=== PATIENT | female | born 1960 | race Caucasian/White ===

== ENCOUNTER 2017-10-19 01:39 | Outpatient (RCR) | payer MEDICARE, MEDICAID, SELFPAY ==
[2017-10-19] MEDS: Normal Saline Flush 10 ML SYR IVP (14:05)
[2017-10-19] MEDS: Heparin 500 UNITS/5 ML SYRINGE IV (14:05)
== END 2017-10-28 ==
LOC: INF 01:39
PROVIDERS: PCP Nurse Practitioner; Visit Provider Internal Medicine Medical Oncology
DX: Z45.2 Encounter for adjustment and management of vascular access device (principal); C34.92 Malignant neoplasm of unspecified part of left bronchus or lung
CPT/HCPCS: 96523

== ENCOUNTER 2017-11-18 00:12 | Outpatient (CLI) | payer MEDICARE, MEDICAID, SELFPAY ==
--- NOTE | 2017-11-18 09:41 | DI.RAD_ITS ---
SYMPTOM/DIAGNOSIS: CHEST PAIN, SOB, J18.9, PNEUMONIA, RESP FAILURE, J96.20 FRONTAL AND LATERAL CHEST: Comparison is made with 06/02/17. Heart size is within normal limits. There is opacity seen in the left hilum with peripheral scarring, atelectasis or pneumonia. There does appear to be volume loss of the left hemithorax. The right lung appears clear. No gross effusions are seen. There is underlying COPD. Degenerative changes are seen in the spine. There is again seen an indwelling central venous catheter, the tip is seen in good position in the superior vena cava. IMPRESSION: Opacity in the left hilum. The findings raise the question of neoplasm. CT scan of the chest is recommended for further evaluation. Pneumonia cannot be entirely excluded. Peripheral opacities in the left upper lobe which may represent atelectasis, scarring or pneumonia.
== END 2017-11-18 00:32 ==
PROVIDERS: PCP Nurse Practitioner; Visit Provider Nurse Practitioner
DX: R07.9 Chest pain, unspecified (principal); R06.02 Shortness of breath; J18.9 Pneumonia, unspecified organism; R91.1 Solitary pulmonary nodule
CPT/HCPCS: 71046

== ENCOUNTER 2017-11-22 00:52 | Outpatient (CLI) | payer MEDICARE, MEDICAID, SELFPAY ==
--- NOTE | 2017-11-22 10:40 | DI.CT_ITS ---
SYMPTOMS/DIAGNOSIS: ABNORMAL CXR, H/O LUNG CA, R93.8 CT SCAN OF THE CHEST: CT scan of the chest was performed following the uneventful administration of intravenous contrast material. Comparison CT is 05/03/17. Comparison chest x- ray is 11/18/17. There is atherosclerosis of the thoracic aorta but no aneurysmal dilatation. The heart size is at the upper limits of normal. No significant pericardial effusion is seen. Coronary artery calcifications are present. There is a moderate-sized hiatal hernia. No pleural effusion or pneumothorax is identified. There are again seen enlarged lymph nodes in the mediastinum. The largest is in the AP window and measures 1.8 cm in length. This is unchanged compared with the prior examination. Severe central lobular emphysematous changes are present in the lungs. Mild dependent atelectatic changes or scarring is seen in the right lung base. No pulmonary nodules are infiltrates are seen on the right. There is a partial left pneumonectomy again noted. There is a shift of the mediastinum to the left , which is stable. There is a new infiltrate seen in the periphery of the left mid lung field anteriorly. There also appears to be increased soft tissue density in the inferior aspect of the hilum medially compared to the prior examination. There does appear to be some narrowing of the airway in this region. This area measures 2.4 x 3 cm. Recurrent mass cannot be excluded. There is a central venous catheter seen. The tip of the catheter is present at the junction of the superior vena cava and right atrium. Upper abdominal images show the patient is status post cholecystectomy. There is a left renal cyst present. Degenerative changes are seen in the spine. IMPRESSION: 1. Postsurgical changes of a partial left pneumonectomy, which appear stable. 2. Question of increased soft tissue in the infrahilar region of the left lung. Recurrent mass should be considered. Further evaluation with a PET/ CT scan should be considered. 3. New infiltrate seen in the periphery of the left lung anteriorly. This may represent pneumonia or atelectasis. Neoplasm cannot be excluded. 4. Moderately severe emphysematous changes in the lungs. 5. Stable lymph nodes in the mediastinum.
[2017-11-22] MEDS: Omnipaque 350 MG/ML 100 ML BTL IJ (10:42)
== END 2017-11-22 01:12 ==
PROVIDERS: PCP Nurse Practitioner; Visit Provider Nurse Practitioner
DX: R91.8 Other nonspecific abnormal finding of lung field (principal); R59.0 Localized enlarged lymph nodes; J43.9 Emphysema, unspecified; Z85.118 Personal history of other malignant neoplasm of bronchus and lung; Z90.2 Acquired absence of lung [part of]
CPT/HCPCS: 71260; J3490

== ENCOUNTER 2017-11-22 09:30 | Outpatient (RCR) | payer MEDICARE, MEDICAID, SELFPAY ==
[2017-11-18] MEDS: Normal Saline Flush 10 ML SYR IVP (08:15)
[2017-11-18] MEDS: Heparin 500 UNITS/5 ML SYRINGE IV (08:15)
[2017-11-18 08:34] LABS: Abs Immature Grans 0.01 k/cumm (0.0-0.09); Absolute Basophil Count 0.02 k/cumm (0.0-0.2); Absolute Eosinophil Count 0.27 k/cumm (0.0-0.7); Absolute Lymphocyte Count 1.25 k/cumm (1.2-3.4); Absolute Monocyte Count 0.73 k/cumm (0.11-0.7); Basophils % 0.2; Eosinophils % 3.2; HGB 11.9 g/dL (12.0-15.5); Immature Grans % 0.1; Lymphocytes % 14.7; Mean Corpuscular Hemoglobin 29.8 pg (27.0-33.0); Mean Corpuscular Volume 87.5 fL (80-95); Mean Platelet Volume 9.4 fL (8.0-11.0); Monocytes % 8.6; Neutrophils % 73.2; Platelet Count 306 x1000/uL (130-400); RBC Distribution Width 12.3 % (11.7-14.6); White Blood Cell Count 8.48 k/cumm (4.4-10.8)
[2017-11-18 08:55] LABS: ALT 37 U/L (12-78); AST 26 U/L (15-37); Albumin 3.6 g/dL (3.4-5.0); Alkaline Phosphatase 124 U/L (46-116); Anion Gap 12.1 mmol/L (3-11); BUN 11 mg/dL (7-18); Bilirubin, Total 0.2 mg/dL (0.2-1.0); CO2 28.9 mmol/L (21.0-32.0); Calcium 8.5 mg/dL (8.5-10.1); Chloride 100 mmol/L (98-107); Cholesterol 181 mg/dL (50-200); Glucose 99 mg/dL (70-100); HDL Cholesterol 48 mg/dL (40-60); LDL CHOLESTEROL 93 mg/dL (<100); Potassium 3.3 mmol/L (3.5-5.1); Sodium 141 mmol/L (136-145); Total Protein 7.8 g/dL (6.4-8.2); Triglyceride 359 mg/dL (30-150)
[2017-11-18 09:20] LABS: Uric Acid 4.4 mg/dL (2.6-6.0)
[2017-11-22] MEDS: Normal Saline Flush 10 ML SYR IVP (09:30)
[2017-11-22] MEDS: Heparin 500 UNITS/5 ML SYRINGE IV (09:35)
== END 2017-11-27 23:59 | disposition home or self-care (01) ==
LOC: INF 09:30
PROVIDERS: PCP Nurse Practitioner; Visit Provider Internal Medicine Medical Oncology
DX: C34.32 Malignant neoplasm of lower lobe, left bronchus or lung (principal); M25.472 Effusion, left ankle; E78.5 Hyperlipidemia, unspecified
CPT/HCPCS: 36591; 80053; 80061; 83721; 85027; 96523; 71046; 71260; 84550; 85025; J3490

== ENCOUNTER 2017-11-24 15:26 | Outpatient (REF) | payer MEDICARE, MEDICAID, SELFPAY | END 2017-11-24 15:46 | LOC: LBN 15:26 | PROVIDERS: PCP Nurse Practitioner; Visit Provider Nurse Practitioner | DX: J18.9 Pneumonia, unspecified organism (principal) | CPT/HCPCS: 87077; 87070; 87186; 87205 ==

== ENCOUNTER 2018-02-07 11:32 | Outpatient (REF) | payer MEDICARE, MEDICAID, SELFPAY | END 2018-02-07 11:52 | LOC: LBN 11:32 | PROVIDERS: PCP Nurse Practitioner; Visit Provider Nurse Practitioner | DX: R06.02 Shortness of breath (principal) | CPT/HCPCS: 87070; 87205 ==

== ENCOUNTER 2018-02-17 01:38 | Outpatient (RCR) | payer MEDICARE, MEDICAID, SELFPAY | END 2018-02-27 23:59 | disposition home or self-care (01) | LOC: INF 01:38 | PROVIDERS: PCP Nurse Practitioner; Visit Provider Internal Medicine | DX: R69 Illness, unspecified (principal) ==

== ENCOUNTER 2018-03-08 10:05 | Outpatient (CLI) | payer MEDICARE, MEDICAID, SELFPAY ==
--- NOTE | 2018-03-08 10:05 | DI.RAD_ITS ---
SYMPTOM/DIAGNOSIS: SOB FRONTAL AND LATERAL CHEST: Comparison is made with 11/18/17. Cardiac silhouette and pulmonary vasculature is within normal limits. There is unchanged scarring in the left hilum. There is unchanged elevation of the left hemidiaphragm. The infiltrate in the mid lung has resolved. No new infiltrates, effusions or pneumothoraces are identified. The right lung is clear. The tip of the indwelling central venous catheter is in good position in the superior vena cava. Degenerative changes are seen in the spine. The lungs are hyperinflated suggesting underlying COPD. IMPRESSION: No acute pulmonary process.
== END 2018-03-08 10:25 ==
PROVIDERS: PCP Nurse Practitioner; Visit Provider Family Medicine
DX: R06.02 Shortness of breath (principal); J44.9 Chronic obstructive pulmonary disease, unspecified
CPT/HCPCS: 71046

== ENCOUNTER 2018-03-28 01:33 | Outpatient (RCR) | payer MEDICARE, MEDICAID, SELFPAY ==
[2018-03-28] MEDS: Heparin 500 UNITS/5 ML SYRINGE IV (11:05)
[2018-03-28] MEDS: Normal Saline Flush 10 ML SYR IVP (11:05)
== END 2018-03-30 23:59 | disposition home or self-care (01) ==
LOC: INF 01:33
PROVIDERS: PCP Nurse Practitioner; Visit Provider Internal Medicine
DX: C21.0 Malignant neoplasm of anus, unspecified (principal); Z45.2 Encounter for adjustment and management of vascular access device
CPT/HCPCS: 36591

== ENCOUNTER 2018-03-28 12:42 | Outpatient (REF) | payer MEDICARE, MEDICAID, SELFPAY ==
[2018-03-28 14:04] LABS: ALT 37 U/L (12-78); AST 38 U/L (15-37); Albumin 3.7 g/dL (3.4-5.0); Alkaline Phosphatase 130 U/L (46-116); BUN 8 mg/dL (7-18); Bilirubin, Total 0.2 mg/dL (0.2-1.0); CREATININE 0.74 mg/dL (0.55-1.02); Calcium 9.8 mg/dL (8.5-10.1); Chloride 100 mmol/L (98-107); Glucose 124 mg/dL (70-100); Potassium 3.4 mmol/L (3.5-5.1); Sodium 141 mmol/L (136-145); Total Protein 7.8 g/dL (6.4-8.2)
[2018-03-28 14:17] LABS: HCT 38.5 % (36.0-46.0); HGB 12.9 g/dL (12.0-15.5); Mean Corp. HGB Concentration 33.5 g/dL (32.0-36.0); Mean Corpuscular Hemoglobin 29.1 pg (27.0-33.0); Mean Corpuscular Volume 86.9 fL (80-95); Mean Platelet Volume 10.7 fL (8.0-11.0); Platelet Count 279 x1000/uL (130-400); RBC 4.43 m/cumm (4.00-5.20); RBC Distribution Width 12.4 % (11.7-14.6); White Blood Cell Count 6.48 k/cumm (4.4-10.8)
== END 2018-03-28 13:02 ==
LOC: LBN 12:42
PROVIDERS: PCP Nurse Practitioner; Visit Provider Nurse Practitioner
DX: R06.02 Shortness of breath (principal); J43.9 Emphysema, unspecified; C34.92 Malignant neoplasm of unspecified part of left bronchus or lung; F33.9 Major depressive disorder, recurrent, unspecified
CPT/HCPCS: 80053; 85027

== ENCOUNTER 2018-05-22 01:23 | Outpatient (RCR) | payer MEDICARE, MEDICAID, SELFPAY | END 2018-05-28 23:59 | disposition home or self-care (01) | LOC: INF 01:23 | PROVIDERS: PCP Nurse Practitioner; Visit Provider Nurse Practitioner | DX: R69 Illness, unspecified (principal) ==

== ENCOUNTER 2018-07-10 21:10 | Emergency (ER) | payer MEDICARE, MEDICAID, SELFPAY ==
[2018-07-10 21:15] VITALS: BP 122/85; PULSE 136; RESP 18; TEMP 36.3; O2SAT 97
[2018-07-10 21:43] LABS: Lactate-non-spesis 2.4 mmol/l (0.6-1.4)
[2018-07-10 21:47] LABS: Abs Immature Grans 0.06 k/cumm (0.0-0.09); Absolute Basophil Count 0.01 k/cumm (0.0-0.2); Absolute Eosinophil Count 0.45 k/cumm (0.0-0.7); Absolute Lymphocyte Count 1.06 k/cumm (1.2-3.4); Basophils % 0.1; Eosinophils % 4.1; HCT 40.8 % (36.0-46.0); Immature Grans % 0.5; Lymphocytes % 9.6; Mean Corp. HGB Concentration 31.9 g/dL (32.0-36.0); Mean Corpuscular Hemoglobin 28.1 pg (27.0-33.0); Mean Corpuscular Volume 88.1 fL (80-95); Mean Platelet Volume 9.8 fL (8.0-11.0); Monocytes % 7.8; Neutrophils % 77.9; Platelet Count 250 x1000/uL (130-400); RBC 4.63 m/cumm (4.00-5.20); RBC Distribution Width 13.1 % (11.7-14.6); White Blood Cell Count 11.09 k/cumm (4.4-10.8)
[2018-07-10 21:48] LABS: Absolute Monocyte Count 0.87 k/cumm (0.11-0.7); Absolute Neutrophil Count 8.64 k/cumm (1.2-6.7)
[2018-07-10 22:01] LABS: ALT 41 U/L (12-78); AST 24 U/L (15-37); Albumin 3.3 g/dL (3.4-5.0); Alkaline Phosphatase 123 U/L (46-116); BUN 9 mg/dL (7-18); Bilirubin, Total 0.1 mg/dL (0.2-1.0); CREATININE 0.69 mg/dL (0.55-1.02); Calcium 9.4 mg/dL (8.5-10.1); Chloride 94 mmol/L (98-107); Glucose 168 mg/dL (70-100); Potassium 3.3 mmol/L (3.5-5.1); Sodium 137 mmol/L (136-145); Total Protein 7.5 g/dL (6.4-8.2)
[2018-07-10] MEDS: Potassium Chloride 20 MEQ TABCR 40 MEQ PO (22:43)
[2018-07-10] MEDS: Normal Saline 250 ML 500 ML IV (22:45)
[2018-07-10] MEDS: HYDROmorphone 2 MG/ML VIAL 1 MG IVP (22:52)
[2018-07-10] MEDS: Omnipaque 350 MG/ML 100 ML BTL IJ (22:59)
--- NOTE | 2018-07-10 23:10 | DI.CT_ITS ---
SYMPTOMS/DIAGNOSIS: ABD PAIN, COLITIS, ELEVATED LACTATE, ? MESENTERIC ISCHEMIA CT OF THE ABDOMEN AND PELVIS: Comparison is made with [id number]. Images were performed from the lung bases through the ischial tuberosities after IV and oral and without oral contrast. There is mild wall thickening of the mid transverse colon and more prominent wall thickening involving the descending and rectosigmoid colon. There is no evidence of obstruction. There is no small bowel dilatation. There is no free air or free fluid. A hiatal hernia is again noted. The lung bases show minimal dependent changes. There is fatty infiltration of the liver. The patient is status post cholecystectomy. There is no biliary dilatation. The spleen, adrenals and pancreas are unremarkable. Small left cysts are noted. There are no stones or hydronephrosis. There is calcification along the abdominal aorta but no evidence of an aneurysm. There is a mild amount of mural plaque. The celiac and superior mesenteric arteries are normally opacified. 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 The patient is status post hysterectomy. The bladder is unremarkable except for a question of a cystocele. IMPRESSION: Moderate wall thickening of the descending and rectosigmoid colon, consistent with colitis.
--- NOTE | 2018-07-10 23:19 | DI.VRAD_ITS ---
EXAM: CT Abdomen and Pelvis With Contrast EXAM DATE/TIME: 07/10/2018 10:45 PM CLINICAL HISTORY: 57 years old, female; Prior surgery; Surgery date: 6+ months; Surgery type: HX of rectal, anal, labia, and lung CA. Appendectomy, cholecystectomy, hysterectomy, and other surgeries related to CA. Last surgery 5 years ago for anal CA, ; patient HX: Abdominal pain, generalized TECHNIQUE: Imaging protocol: Axial computed tomography images of the abdomen and pelvis with intravenous contrast. Coronal and sagittal reformatted images were created and reviewed. Radiation optimization: All CT scans at this facility use at least one of these dose optimization techniques: automated exposure control; mA and/or kV adjustment per patient size (includes targeted exams where dose is matched to clinical indication); or iterative reconstruction. Contrast material: OMNIPAQUE 350; Contrast volume: 100 ml; Contrast route: IV; COMPARISON: CT CHEST ABD PELVIS WITH CONTRAST 05/03/2017 9:24 PM FINDINGS: Mediastinum: Small hiatal hernia. ABDOMEN: Liver: No suspicious lesions. Gallbladder and bile ducts: Cholecystectomy. Pancreas: Unremarkable. No ductal dilation. Spleen: No suspicious lesions. Adrenals: Unremarkalbe. No suspicious mass. Kidneys and ureters: Unremarkable. No hydro. No suspicious lesions. Stomach and bowel: Diffuse wall thickening of the left hemicolon which is [id number]. Appendix: Appendectomy. PELVIS: Bladder: Unremarkable as visualized. Reproductive: Hysterectomy. ABDOMEN and PELVIS: Intraperitoneal space: No free air. No significant fluid collection. Bones/joints: Grade 1-2 anterolisthesis of L5 on S1 secondary to bilateral L5 pars defects. Soft tissues: Unremarkable. Vasculature: Unremarkable. No acute findings Lymph nodes: Unremarkable. IMPRESSION: Left-sided colitis most likely infectious or inflammatory bowel disease. Small hiatal hernia. Dictated and Authenticated by: Ray Reagan MD. Ordering:LIZY Wasserman MD
[2018-07-10 23:54] VITALS: BP 98/71; PULSE 135; RESP 22; TEMP 37.2; O2SAT 90
[2018-07-11] MEDS: HYDROmorphone 2 MG/ML VIAL 1 MG IVP ×2 (00:32→02:20)
[2018-07-11 01:01] VITALS: O2SAT 93
--- NOTE | 2018-07-11 01:10 | DI.CT_ITS ---
SYMPTOMS/DIAGNOSIS: ABD PAIN, COLITIS, ELEVATED LACTATE CT ANGIOGRAPHY ABDOMEN AND PELVIS: CT angiography was performed with multi slice acquisition and multi planar and 3D reconstruction. Arterial and venous phase exams were performed following IV contrast. Comparison is made with the previous day's examination. The aorta shows mild calcification and mild mural thrombus. There is no evidence of aneurysm, dissection or significant stenosis. The celiac and superior mesenteric arteries appear patent. The renal and iliac arteries are also patent. Diffuse wall thickening is again noted of the left colon from the mid transverse through to the rectosigmoid. There is no evidence of obstruction. The small bowel is unremarkable. There is no free air or free fluid. No abscess is seen. The liver again shows fatty infiltration. The patient is status post hysterectomy. The urinary bladder is filled with contrast and there is a mild cystocele. The kidneys show normal excretion. IMPRESSION: Colitis of the left hemicolon. There is no evidence of vascular occlusion or significant stenosis.
[2018-07-11 01:26] LABS: HGB 11.9 g/dL (12.0-15.5)
--- NOTE | 2018-07-11 01:39 | ED.GENADUL_ITS ---
Discharge Plan Disposition Patient Disposition: AGAINST MEDICAL ADVICE Condition: Fair Discharge Details Chief Complaint: GenMedical Clinical Impression: Colitis, Coffee ground emesis, GI bleed, History of lung cancer, History of rectal cancer Primary Care Provider: Jacque Walsh ED Provider: Guera Keith Home Meds and New Rx's Prescriptions: New amoxicillin-pot clavulanate [Augmentin] 875-125 mg tablet 1 tab PO BID 10 Days Qty: 20 RF: 0 Continued prochlorperazine maleate 10 mg tablet 10 mg PO Q6H PRN PRN (Reason: nausea and vomiting) Qty: 60 RF: 3 levalbuterol tartrate [Xopenex HFA] 45 mcg/actuation HFA aerosol inhaler 2 puff Inhalation Q4H PRN PRN (Reason: shortness of breath or wheezing) Qty: 1 RF: 12 hydrocodone-homatropine [Hydrocodone Compound] 5-1.5 mg/5 mL syrup 5 ml PO BID MDD 10ml PRN (Reason: cough) Qty: 473 RF: 0 duloxetine [Cymbalta] 30 mg capsule,delayed release(DR/EC) 30 mg PO DAILY Qty: 90 RF: 4 nystatin 100,000 unit/gram powder 1 applic TP TID Qty: 60 RF: 3 levofloxacin [Levaquin] 500 mg tablet 500 mg PO DAILY RF: 0 tizanidine 2 mg tablet See Rx Instructions PO Q8H PRN (Reason: muscle spasticity) Qty: 120 RF: 3 morphine concentrate 100 mg/5 mL (20 mg/mL) solution See Rx Instructions SL Q1H PRN MDD 3ml PRN (Reason: pain) Qty: 30 RF: 0 fentanyl 50 mcg/hr patch 72 hour 1 patch TD Q48H MDD 1 Qty: 15 RF: 0 fentanyl 100 mcg/hr patch 72 hour 1 patch TD Q48H MDD 1 Qty: 15 RF: 0 prednisone 20 mg tablet See Rx Instructions PO DAILY Qty: 11 RF: 2 PREMARIN 45 GM CREAM.APPL 1 g Topical DAILY Qty: 45 RF: 0 acetaminophen [Tylenol Extra Strength] 500 MG tablet 1,000 mg PO TID PRNRF: 0 Narcan 4 MG spray,non-aerosol 1 spray NS PRN Qty: 1 RF: 1 Spiriva with HandiHaler 18 MCG capsule, w/inhalation device 18 mcg Inhalation DAILY RF: 0 cholecalciferol (vitamin D3) [Vitamin D3] 2,000 UNIT tablet 2,000 unit PO DAILY RF: 0 Ketoconazole 15 GM CREAM..G. 1 melissa Topical BID Qty: 60 RF: 3 Oxygen EACH 3 l NS FOR 18 HRS Qty: 0 RF: 0 furosemide 40 MG tablet 40 mg PO PRN Qty: 1 RF: 0 ibuprofen 200 MG capsule 600 mg PO Q6H PRN RF: 0 opium tincture 10 MG/1 ML tincture 50 mg PO Q4H PRN Qty: 180 RF: 0 diclofenac sodium 100 GM gel 1 applic Topical BID Qty: 100 RF: 12 ipratropium-albuterol 3 ML solution for nebulization 3 ml Inhalation QID Qty: 150 RF: 12 omeprazole 40 mg capsule,delayed release(DR/EC) 40 mg PO DAILY@0730 Qty: 90 RF: 3 nystatin 100,000 unit/mL suspension 5 ml PO QID Qty: 100 RF: 0 clonazepam 0.5 mg tablet 0.5 mg PO BID Qty: 60 RF: 2 Discharge Instructions Instructions: Rectal Bleeding (ED), Acute Nausea and Vomiting (ED), Colitis (ED) Additional Instructions: Take the antibiotics until finished. Call Dr. Koroma's office tomorrow morning to schedule a follow-up appointment for reevaluation tomorrow and for recheck of your hemoglobin. Return immediately to the emergency department with any worsening or concerning symptoms. Discharge Data Discharge Date/Time-TO BE ENTERED AT DEPARTURE: 07/11/18 03:00 Discharge Physician: Guera Keith Medical Decision Making <Guera Keith DO - Last Filed: 07/13/18 10:52> Please see Dr. Lisy Rothman's note for initial presentation, exam, and plan. Patient is a 57-year-old female with a history of COPD and multiple malignancies including lung, rectal, cervical, vulvar, and skin cancer who presented to the ED with a complaint of coffee-ground emesis for the past 2 days and bright red rectal bleeding today. Patient is being followed by palliative care. Patient had discussed with staff on arrival that she did not want to stay in the hospital. Last episode of coffee-ground emesis more than 1 day ago. Last episode of large amount of rectal bleeding was several hours ago. Patient had labs and imaging on arrival including CT abdomen. Her hemoglobin w as 13 on arrival. Lactate 2.4. K 3.3. CT abdomen noted inflammatory versus infectious colitis. Per Dr. Ruiz Rothman's reevaluation, patient still complained of significant pain. A CTA abdomen was ordered to rule out mesenteric ischemia. Case endorsed to follow-up on CTA abdomen and repeat H&H. Patient told Dr. Rothman that she does not want to stay in the hospital. 0215 --repeat hemoglobin 11.9. CTA abdomen noted diffuse left-sided colitis most likely infectious or inflammatory but no obvious signs of mesenteric ischemia. Heart rate 130s-140s. Patient appears pale. Daughter who is a nurse states that patient's heart rate is usually in the 120s. Discussed with patient that her hemoglobin drop may be dilutional, but in the setting of her history, increasing tachycardia, would recommend admission for observation, and repeat labs in the a.m., but patient is still refusing to stay and would rather go home. The risks of and disability due to a serious pathology were explained and patient fully understands but would still like to leave. Patient demonstrates capacity to make decisions. AMA form signed. Chart notes an allergy to Augmentin, but daughter and patient states she has tolerated this in the past. Will give 1 dose of Augmentin here for colitis. Patient has plenty of pain medication at home. She states she will follow up with Dr. Koroma in the office tomorrow for reevaluation. She is instructed to have a repeat hemoglobin tomorrow. She is instructed to return here immediately if worse. Medical Records Medical records reviewed: Yes I reviewed the patient's medical records. Imaging Data Radiologic Study: Radiologist's impression: CT Abdomen and Pelvis With Contrast EXAM DATE/TIME: 07/10/2018 10:45 PM CLINICAL HISTORY: 57 years old, female; Prior surgery; Surgery date: 6+ months; Surgery type: HX of rectal, anal, labia, and lung CA. Appendectomy, cholecystectomy, hysterectomy, and other surgeries related to CA. Last surgery 5 years ago for anal CA, ; patient HX: Abdominal pain, generalized TECHNIQUE: Imaging protocol: Axial computed tomography images of the abdomen and pelvis with intravenous contrast. Coronal and sagittal reformatted images were created and reviewed. Radiation optimization: All CT scans at this facility use at least one of these dose optimization techniques: automated exposure control; mA and/or kV adjustment per patient size (includes targeted exams where dose is matched to clinical indication); or iterative reconstruction. Contrast material: OMNIPAQUE 350; Contrast volume: 100 ml; Contrast route: IV; COMPARISON: CT CHEST ABD PELVIS WITH CONTRAST 05/03/2017 9:24 PM FINDINGS: Mediastinum: Small hiatal hernia. ABDOMEN: Liver: No suspicious lesions. Gallbladder and bile ducts: Cholecystectomy. Pancreas: Unremarkable. No ductal dilation. Spleen: No suspicious lesions. Adrenals: Unremarkalbe. No suspicious mass. Kidneys and ureters: Unremarkable. No hydro. No suspicious lesions. Stomach and bowel: Diffuse wall thickening of the left hemicolon which is [id number]. Appendix: Appendectomy. PELVIS: Bladder: Unremarkable as visualized. Reproductive: Hysterectomy. ABDOMEN and PELVIS: Intraperitoneal space: No free air. No significant fluid collection. Bones/joints: Grade 1-2 anterolisthesis of L5 on S1 secondary to bilateral L5 pars defects. Soft tissues: Unremarkable. Vasculature: Unremarkable. No acute findings Lymph nodes: Unremarkable. IMPRESSION: Left-sided colitis most likely infectious or inflammatory bowel disease. Small hiatal hernia. Radiologic Study #2: Radiologist's impression: CT Angiography Abdomen and Pelvis With Contrast EXAM DATE/TIME: 07/11/2018 1:34 AM CLINICAL HISTORY: 57 years old, female; Abdominal pain; Generalized; Prior surgery; Surgery date: 6+ months; Surgery type: HX of rectal, anal, labia, and lung CA. Appendix and gallbladder removed, hysterectomy; Patient HX: Abd pain, colitis, elevated lactate TECHNIQUE: Imaging protocol: Axial computed tomographic angiography images of the abdomen and pelvis with intravenous contrast material. Coronal and sagittal reformatted images were created and reviewed. 3D rendering: MIP reconstructed images were created and reviewed. Radiation optimization: All CT scans at this facility use at least one of these dose optimization techniques: automated exposure control; mA and/or kV adjustment per patient size (includes targeted exams where dose is matched to clinical indication); or iterative reconstruction. Contrast material: OMNIPAQUE 350; Contrast volume: 73 ml; Contrast route: IV; COMPARISON: Vascular^CTA_MESENTERIC_ISCHEMIA (Adult) 07/11/2018 1:01 AM FINDINGS: VASCULATURE: Aorta: No aortic aneurysm. No aortic dissection. Celiac trunk and mesenteric arteries: No occlusion or significant stenosis. Renal arteries: No occlusion or significant stenosis. Right iliac arteries: No occlusion or significant stenosis. Left iliac arteries: No occlusion or significant stenosis. ABDOMEN: Liver: No mass. Gallbladder and bile ducts: Unremarkable. No calcified stones. No ductal d ilation. Pancreas: Unremarkable. No mass. No ductal dilation. Spleen: Unremarkable. No splenomegaly. Adrenals: Unremarkable. No mass. Kidneys and ureters: Unremarkable. No solid mass. No hydronephrosis. Stomach and bowel: The diffuse wall thickening of the left hemicolon. This includes transverse, descending colon and the sigmoid colon. Appendix: No evidence of appendicitis. PELVIS: Bladder: Unremarkable. No mass. Reproductive: Unremarkable as visualized. ABDOMEN and PELVIS: Intraperitoneal space: Unremarkable. No free air. No significant fluid collection. Bones/joints: No acute fracture. No dislocation. Soft tissues: Unremarkable. Lymph nodes: Unremarkable. No enlarged lymph nodes. IMPRESSION: Diffuse left-sided colitis most likely infectious or inflammatory bowel disease. The distribution would be unusual for ischemic and there is no evidence of mesenteric vascular pathology. Lab Data Lab results reviewed: Yes I reviewed the patient's lab results. Laboratory Tests Range/Units 07/10/18 07/10/18 07/10/18 21:34 21:34 21:34 WBC (4.4-10.8) k/cumm 11.09 H RBC (4.00-5.20) m/cumm 4.63 Hgb (12.0-15.5) g/dL 13.0 Hct (36.0-46.0) % 40.8 MCV (80-95) fL 88.1 MCH (27.0-33.0) pg 28.1 MCHC (32.0-36.0) g/dL 31.9 L RDW (11.7-14.6) % 13.1 Plt Count (130-400) x1000/uL 250 MPV (8.0-11.0) fL 9.8 Immature Gran % 0.5 Neutrophils % 77.9 Lymphocytes % 9.6 Monocytes % 7.8 Eosinophils % 4.1 Basophils % 0.1 Absolute Neutrophils (1.2-6.7) k/cumm 8.64 H Absolute Lymphocytes (1.2-3.4) k/cumm 1.06 L Absolute Monocytes (0.11-0.7) k/cumm 0.87 H Absolute Eosinophils (0.0-0.7) k/cumm 0.45 Absolute Basophils (0.0-0.2) k/cumm 0.01 PT (9.3-11.0) sec INR (0.9-1.1) Sodium (136-145) mmol/L 137 Potassium (3.5-5.1) mmol/L 3.3 L Chloride (98-107) mmol/L 94 L Carbon Dioxide (21.0-32.0) mmol/L 36.0 H Anion Gap (3-11) mmol/L 7.0 BUN (7-18) mg/dL 9 Creatinine (0.55-1.02) mg/dL 0.69 Estimated GFR/1.73 m2 (mL/min/1.73m2) >= 60.00 Glucose (70-100) mg/dL 168 H Lactate (0.6-1.4) mmol/l 2.4 H Calcium (8.5-10.1) mg/dL 9.4 Total Bilirubin (0.2-1.0) mg/dL 0.1 L AST (15-37) U/L 24 ALT (12-78) U/L 41 Alkaline Phosphatase (46-116) U/L 123 H Total Protein (6.4-8.2) g/dL 7.5 Albumin (3.4-5.0) g/dL 3.3 L Urine Color (Yellow) Urine Clarity Urine pH (5-8) Ur Specific [place] (1.005-1.025) Urine Protein (Negative) mg/dL Urine Ketones (Negative) mg/dL Urine Blood (Negative) Urine Nitrite (Negative) Urine Bilirubin (Negative) Urine Urobilinogen (Up TO 0.2) EU/dL Ur Leukocyte Esterase (Negative) Urine Glucose (Negative) mg/dL Crossmatch Range/Units 07/10/18 07/10/18 07/11/18 22:10 22:10 01:22 WBC (4.4-10.8) k/cumm RBC (4.00-5.20) m/cumm Hgb (12.0-15.5) g/dL 11.9 L Hct (36.0-46.0) % 36.0 MCV (80-95) fL MCH (27.0-33.0) pg MCHC (32.0-36.0) g/dL RDW (11.7-14.6) % Plt Count (130-400) x1000/uL MPV (8.0-11.0) fL Immature Gran % Neutrophils % Lymphocytes % Monocytes % Eosinophils % Basophils % Absolute Neutrophils (1.2-6.7) k/cumm Absolute Lymphocytes (1.2-3.4) k/cumm Absolute Monocytes (0.11-0.7) k/cumm Absolute Eosinophils (0.0-0.7) k/cumm Absolute Basophils (0.0-0.2) k/cumm PT (9.3-11.0) sec INR (0.9-1.1) Sodium (136-145) mmol/L Potassium (3.5-5.1) mmol/L Chloride (98-107) mmol/L Carbon Dioxide (21.0-32.0) mmol/L Anion Gap (3-11) mmol/L BUN (7-18) mg/dL Creatinine (0.55-1.02) mg/dL Estimated GFR/1.73 m2 (mL/min/1.73m2) Glucose (70-100) mg/dL Lactate (0.6-1.4) mmol/l Calcium (8.5-10.1) mg/dL Total Bilirubin (0.2-1.0) mg/dL AST (15-37) U/L ALT (12-78) U/L Alkaline Phosphatase (46-116) U/L Total Protein (6.4-8.2) g/dL Albumin (3.4-5.0) g/dL Urine Color (Yellow) Urine Clarity Urine pH (5-8) Ur Specific [place] (1.005-1.025) Urine Protein (Negative) mg/dL Urine Ketones (Negative) mg/dL Urine Blood (Negative) Urine Nitrite (Negative) Urine Bilirubin (Negative) Urine Urobilinogen (Up TO 0.2) EU/dL Ur Leukocyte Esterase (Negative) Urine Glucose (Negative) mg/dL Crossmatch See Detail Range/Units 07/11/18 01:45 WBC (4.4-10.8) k/cumm RBC (4.00-5.20) m/cumm Hgb (12.0-15.5) g/dL Hct (36.0-46.0) % MCV (80-95) fL MCH (27.0-33.0) pg MCHC (32.0-36.0) g/dL RDW (11.7-14.6) % Plt Count (130-400) x1000/uL MPV (8.0-11.0) fL Immature Gran % Neutrophils % Lymphocytes % Monocytes % Eosinophils % Basophils % Absolute Neutrophils (1.2-6.7) k/cumm Absolute Lymphocytes (1.2-3.4) k/cumm Absolute Monocytes (0.11-0.7) k/cumm Absolute Eosinophils (0.0-0.7) k/cumm Absolute Basophils (0.0-0.2) k/cumm PT (9.3-11.0) sec INR (0.9-1.1) Sodium (136-145) mmol/L Potassium (3.5-5.1) mmol/L Chloride (98-107) mmol/L Carbon Dioxide (21.0-32.0) mmol/L Anion Gap (3-11) mmol/L BUN (7-18) mg/dL Creatinine (0.55-1.02) mg/dL Estimated GFR/1.73 m2 (mL/min/1.73m2) Glucose (70-100) mg/dL Lactate (0.6-1.4) mmol/l Calcium (8.5-10.1) mg/dL Total Bilirubin (0.2-1.0) mg/dL AST (15-37) U/L ALT (12-78) U/L Alkaline Phosphatase (46-116) U/L Total Protein (6.4-8.2) g/dL Albumin (3.4-5.0) g/dL Urine Color (Yellow) Yellow Urine Clarity Clear Urine pH (5-8) 8.0 Ur Specific [place] (1.005-1.025) 1.010 Urine Protein (Negative) mg/dL Negative Urine Ketones (Negative) mg/dL Negative Urine Blood (Negative) Negative Urine Nitrite (Negative) Negative Urine Bilirubin (Negative) Negative Urine Urobilinogen (Up TO 0.2) EU/dL 0.2 Ur Leukocyte Esterase (Negative) Negative Urine Glucose (Negative) mg/dL Negative Crossmatch ECG Data Attestation: I personally reviewed and interpreted this ECG (s) as follows: Interpretation: Rate of 133, sinus, no acute ST elevation or depression. QTc 455. QRS 98. <Lisy Rothman MD - Last Filed: 07/11/18 14:56> Priscila Chowdary is a 57 y/o woman history of terminal colon cancer, lung cancer, COPD, depression, high cholesterol and who presented to the emergency department with coffee-ground emesis that began 3 days ago with last episode 2 days ago, 2 to 3 days of melena, and bright red blood per rectum today. On exam patient appears chronically ill but acutely nontoxic. She is tachycardic in the 130s. She has mild diffuse tenderness of her abdomen. She declines rectal exam at this time. Patient's daughter states that patient is always tachycardic with a heart rate between 115 and 125. Blood pressure okay at this time, however I am concerned for significant hemorrhage given her reported history. Plan for EKG, screening labs, IV, blood transfusion given pallor, tachycardia and reported history of bleeding. CT abdomen pelvis. Labs sent from triage, hemoglobin reported as 13. Will hold blood transfusion at this time. Plan for IV fluid hydration and CT abdomen pelvis. Patient declines pain medication at this time. CT abdomen pelvis shows inflammatory versus infectious colitis, however patient with elevated lactate and risk factors for mesenteric ischemia. Plan for CTA abdomen/pelvis. Patient now requesting pain medication, will treat with Dilaudid. Plan to continue IV fluid hydration. Patient's heart rate continues to be at 130. Of note, patient stated to me multiple times during her initial presentation and again on several reassessments that she does not want to be admitted tonight under any circumstances, she is aware that her illness is term inal, and she wishes to go home no matter the outcome of her testing. She is amenable to continued evaluation in the emergency department. Patient signed out to Dr. Keith at time of shift change with CTA of the abdomen pelvis and repeat hemoglobin/hematocrit pending. Will impression, Clinical impression: GI bleed, tachycardia, colitis Disposition: Still patient Medical Records Medical records reviewed: Yes I reviewed the patient's medical records. Imaging Data Radiologic Study: Attestation: I personally reviewed and interpreted this imaging study as follows: Radiologist's impression: EXAM: CT Abdomen and Pelvis With Contrast EXAM DATE/TIME: 07/10/2018 10:45 PM CLINICAL HISTORY: 57 years old, female; Prior surgery; Surgery date: 6+ months; Surgery type: HX of rectal, anal, labia, and lung CA. Appendectomy, cholecystectomy, hysterectomy, and other surgeries related to CA. Last surgery 5 years ago for anal CA, ; patient HX: Abdominal pain, generalized TECHNIQUE: Imaging protocol: Axial computed tomography images of the abdomen and pelvis with intravenous contrast. Coronal and sagittal reformatted images were created and reviewed. Radiation optimization: All CT scans at this facility use at least one of these dose optimization techniques: automated exposure control; mA and/or kV adjustment per patient size (includes targeted exams where dose is matched to clinical indication); or iterative reconstruction. Contrast material: OMNIPAQUE 350; Contrast volume: 100 ml; Contrast route: IV; COMPARISON: CT CHEST ABD PELVIS WITH CONTRAST 05/03/2017 9:24 PM FINDINGS: Mediastinum: Small hiatal hernia. ABDOMEN: Liver: No suspicious lesions. Gallbladder and bile ducts: Cholecystectomy. Pancreas: Unremarkable. No ductal dilation. Spleen: No suspicious lesions. Adrenals: Unremarkalbe. No suspicious mass. Kidneys and ureters: Unremarkable. No hydro. No suspicious lesions. Stomach and bowel: Diffuse wall thickening of the left hemicolon which is [id number]. Appendix: Appendectomy. PELVIS: Bladder: Unremarkable as visualized. Reproductive: Hysterectomy. ABDOMEN and PELVIS: Intraperitoneal space: No free air. No significant fluid collection. Bones/joints: Grade 1-2 anterolisthesis of L5 on S1 secondary to bilateral L5 pars defects. Soft tissues: Unremarkable. Vasculature: Unremarkable. No acute findings Lymph nodes: Unremarkable. IMPRESSION: Left-sided colitis most likely infectious or inflammatory bowel disease. Small hiatal hernia. Lab Data Lab results reviewed: Yes I reviewed the patient's lab results. ECG Data Attestation: I personally reviewed and interpreted this ECG (s) as follows: Interpretation: EKG shows sinus tachycardia at 133, borderline left axis, poor R wave progression, nondiagnostic EKG HPI <Guera Keith DO - Last Filed: 07/13/18 10:52> General Date/Time Provider Initiated Documentation: 07/10/18 21:36 . Related Data Home Medications Medication Instructions Recorded Confirmed acetaminophen [Tylenol Extra 1,000 mg PO TID PRN tab-cap 07/03/15 07/11/18 Strength] Narcan 1 spray NS PRN #1 unit 05/24/16 07/11/18 Spiriva with HandiHaler 18 mcg INHALATION DAILY tab-cap 02/09/17 07/11/18 cholecalciferol (vitamin D3) 2,000 unit PO DAILY 03/29/17 07/11/18 [Vitamin D3] furosemide 40 mg PO PRN #1 tab-cap 10/05/17 07/11/18 diclofenac sodium 1 applic TOPICAL BID #100 gm 10/12/17 07/11/18 ibuprofen 600 mg PO Q6H PRN tab-cap 10/12/17 07/11/18 ipratropium-albuterol 3 ml INHALATION QID #150 amp 10/12/17 07/11/18 opium tincture 50 mg PO Q4H PRN #180 ml 10/12/17 07/11/18 duloxetine 30 mg capsule,delayed 30 mg PO DAILY #90 cap 11/09/17 07/11/18 release nystatin 100,000 unit/gram topical 1 applic TP TID #60 gm 11/09/17 07/11/18 powder prochlorperazine maleate 10 mg 10 mg PO Q6H PRN PRN #60 tab-cap 12/29/17 07/11/18 tablet hydrocodone-homatropine 5 mg-1.5 5 ml PO BID PRN #473 ml MDD 10ml 03/28/18 07/11/18 mg/5 mL oral syrup levalbuterol HFA 45 mcg/actuation 2 puff INHALATION Q4H PRN PRN #1 03/28/18 07/11/18 aerosol inhaler inhaler prednisone 20 mg tablet See Rx Instructions PO DAILY #11 05/09/18 07/11/18 tab nystatin 100,000 unit/mL oral 5 ml PO QID #100 ml 06/12/18 07/11/18 suspension omeprazole 40 mg capsule,delayed 40 mg PO DAILY@0730 #90 capcr 06/12/18 07/11/18 release clonazepam 0.5 mg tablet 0.5 mg PO BID #60 tab 06/13/18 07/11/18 fentanyl 100 mcg/hr transdermal 1 patch TD Q48H #15 each MDD 1 07/05/18 07/11/18 patch fentanyl 50 mcg/hr transdermal 1 patch TD Q48H #15 each MDD 1 07/05/18 07/11/18 patch levofloxacin 500 mg tablet 500 mg PO DAILY 07/05/18 07/11/18 morphine concentrate 100 mg/5 mL See Rx Instructions SL Q1H PRN PRN 07/05/18 07/11/18 (20 mg/mL) oral solution #30 ml MDD 3ml tizanidine 2 mg tablet See Rx Instructions PO Q8H PRN 07/05/18 07/11/18 #120 tab amoxicillin-pot clavulanate 1 tab PO BID 10 Days #20 tab 07/11/18 07/11/18 [Augmentin] Previous Rx's Medication Instructions Recorded furosemide 40 mg PO PRN #1 tab-cap 10/05/17 diclofenac sodium 1 applic TOPICAL BID #100 gm 10/12/17 ipratropium-albuterol 3 ml INHALATION QID #150 amp 10/12/17 duloxetine 30 mg capsule,delayed 30 mg PO DAILY #90 cap 11/09/17 release nystatin 100,000 unit/gram topical 1 applic TP TID #60 gm 11/09/17 powder prochlorperazine maleate 10 mg 10 mg PO Q6H PRN PRN #60 tab-cap 12/29/17 tablet hydrocodone-homatropine 5 mg-1.5 5 ml PO BID PRN #473 ml MDD 10ml 03/28/18 mg/5 mL oral syrup levalbuterol HFA 45 mcg/actuation 2 puff INHALATION Q4H PRN PRN #1 03/28/18 aerosol inhaler inhaler prednisone 20 mg tablet See Rx Instructions PO DAILY #11 05/09/18 tab nystatin 100,000 unit/mL oral 5 ml PO QID #100 ml 06/12/18 suspension omeprazole 40 mg capsule,delayed 40 mg PO DAILY@0730 #90 capcr 06/12/18 release clonazepam 0.5 mg tablet 0.5 mg PO BID #60 tab 06/13/18 fentanyl 100 mcg/hr transdermal 1 patch TD Q48H #15 each MDD 1 07/05/18 patch fentanyl 50 mcg/hr transdermal 1 patch TD Q48H #15 each MDD 1 07/05/18 patch morphine concentrate 100 mg/5 mL See Rx Instructions SL Q1H PRN PRN 07/05/18 (20 mg/mL) oral solution #30 ml MDD 3ml tizanidine 2 mg tablet See Rx Instructions PO Q8H PRN 07/05/18 #120 tab amoxicillin-pot clavulanate 1 tab PO BID 10 Days #20 tab 07/11/18 [Augmentin] Allergies Allergy/AdvReac Type Severity Reaction Status Date / Time silver Allergy Severe rash and Verified 07/11/18 14:29 [From Tegaderm AG Mesh] burning amoxicillin trihydrate Allergy Unknown Verified 07/11/18 14:29 [From Augmentin] torsemide AdvReac Severe Verified 07/11/18 14:29 amitriptyline AdvReac Intermediate Depression Verified 07/11/18 14:29 doxycycline AdvReac Intermediate N/V, ABD Verified 07/11/18 14:29 PAIN potassium clavulanate AdvReac Intermediate Nausea Verified 07/11/18 14:29 [From Augmentin] codeine phosphate AdvReac Mild nausea Verified 07/11/18 14:29 [From Robitussin A-C] guaifenesin AdvReac Mild nausea Verified 07/11/18 14:29 [From Robitussin A-C] lorazepam AdvReac Unknown confusion Verified 07/11/18 14:29 albuterol AdvReac crawling Verified 07/11/18 14:29 out of my skin, hyperactivity cyclobenzaprine AdvReac hallucinati Verified 07/11/18 14:29 on risperidone AdvReac Hallucinati Verified 07/11/18 14:29 ons Artificial sweeteners AdvReac migraines Uncoded 07/11/18 14:29 <Lisy Rothman MD - Last Filed: 07/11/18 14:56> General Mode of arrival: ambulatory . Limitations to Documentation: no limitations . Information obtained by: patient, family, RN notes reviewed and old records reviewed . HPI Narrative: Priscila Chowdary is a 57 y/o woman with h/o lung c ancer, hyperlipidemia, GERD, COPD, rectal cancer, lung cancer presenting to the emergency department with vomiting blood, rectal bleeding. Patient is accompanied by her daughter. Patient reports that she has terminal cancer and has had radiation treatment, but is not undergoing chemotherapy for surgical intervention. Patient states that 3 days ago she developed vomiting with coffee-ground emesis. She reports that since then she has been having diarrhea with dark stool, but today has had some bright red blood per rectum. Patient reports that she is DNR/DNI and does not wish to undergo major intervention, but did come to the emergency department for a tune up which she describes as a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
[2018-07-11 01:50] LABS: Bilirubin Negative (Negative); Blood Negative (Negative); Clarity Clear; Glucose Negative (Negative); Ketones Negative (Negative); Leukocyte Esterase Negative (Negative); Nitrite Negative (Negative); Urobilinogen 0.2 EU/dL (Up TO 0.2)
[2018-07-11 01:52] VITALS: PULSE 134; O2SAT 98
[2018-07-11] MEDS: Omnipaque 350 MG/ML 100 ML BTL IJ (01:57)
[2018-07-11] MEDS: Amoxicillin 875/Clav. 125 TAB PO (02:39)
== END 2018-07-11 03:00 | disposition left against medical advice (07) ==
PROVIDERS: Student in an Organized Health Care Education/Training Program; Emergency Provider Physician Assistant; PCP Nurse Practitioner
DX: K92.0 Hematemesis (principal); K52.9 Noninfective gastroenteritis and colitis, unspecified; K92.2 Gastrointestinal hemorrhage, unspecified; R10.84 Generalized abdominal pain; C18.9 Malignant neoplasm of colon, unspecified; R00.0 Tachycardia, unspecified; Z85.048 Personal history of other malignant neoplasm of rectum, rectosigmoid junction, and anus; Z85.118 Personal history of other malignant neoplasm of bronchus and lung; J44.9 Chronic obstructive pulmonary disease, unspecified; Z53.29 Procedure and treatment not carried out because of patient's decision for other reasons; Z66 Do not resuscitate
CPT/HCPCS: 36415; 80053; 86900; 86901; 86920; 93005; 96361; 96374; 96376; 99285; 74174; 74177; 81003; 83605; 85014; 85018; 85025; 85610; 93010; J3490

== ENCOUNTER 2018-12-19 18:47 | Inpatient (IN) | payer OTHER, SELFPAY ==
[2018-12-19] VITALS (10 sets, daily range): BP systolic 128–151; BP diastolic 67–90; PULSE 122–154; RESP 18–25; TEMP 36.4–37.8; O2SAT 89–96
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
[2018-12-19] MEDS: Senna TAB PO (23:52)
[2018-12-19] MEDS: Nystatin POWDER 15 GM JAR TP (23:52)
[2018-12-20] MEDS: Promethazine 25 MG TAB PO (01:09)
[2018-12-20] MEDS: Ondansetron O.D.T. 4 MG TABEF PO (01:54)
[2018-12-20] MEDS: LORazepam 2 MG/ML VIAL IV/SC (04:38)
[2018-12-20] MEDS: Haloperidol 5 MG/ML VIAL IM (04:38)
[2018-12-20] MEDS: clonazePAM 0.5 MG TAB PO ×3 (09:57→18:13)
[2018-12-20] MEDS: Nystatin POWDER 15 GM JAR TP ×2 (09:58→20:15)
[2018-12-20] MEDS: Hyoscyamine 0.125 MG SL/ORAL/CHEW SL (10:33)
--- NOTE | 2018-12-20 10:36 | PGE_ITS ---
Date of Service Date of service: 12/20/18 Time of Service: 10:36 Assessment and Plan Assessment and plan (1) Hospice care patient: Status: Acute Assessment and plan: At this point Juan Diego is clear that she wants to be on less morphine. She repeated this a few times with the nurse in the room. She also states that she does not like having boluses as it brings her up and down. She prefer basal and at a lower rate. She knows she can ask for the oxygen we have taken it off at her request. If she requests to have this back on I do not want O2 sats to be done, but rather p ut 2 L on leaving. We offered her a urine catheter, she refused. With her bladder irritability we will give her Pyridium, scheduled oxybutynin, hyoscyamine x1, and check for UA. If she does have a urinary tract infection it would be a small change to add antibiotics and may hopefully make her much more comfortable Disposition the plan is for her to go to a long-term nursing care facility. She has choices for care. I did speak with her daughter about changing her back to p.o. medication. That is the goal. We also discussed perhaps if her mother rebounds that she could come off of hospice. Today Juan Diego looks worse than she did last week when I saw her at home. I do not know what the effects that I am seeing are from over medication with the morphine or if she is in fact actively dying. I have communicated this to Dr. Shea. I am gone for the next 2 weeks (2) Squamous cell carcinoma of left lung: Status: Chronic (3) Major depressive disorder, recurrent, unspecified: Status: Chronic (4) Depressive disorder: Status: Chronic (5) Chronic pain: Status: Chronic (6) COPD (chronic obstructive pulmonary disease): Status: Chronic (7) Rectal cancer: Status: Chronic Subjective Subjective Patient reports: pain is less and shortness of breath Interval history since last seen: I am seeing Rola for a hospice visit. Last PM her daughter brought her to the hospital because she was no longer able to ca re for her. Dr Tobias admitted her. Last week I did a home visit as Rola had been on a morphine pump for weeks and clearly was not actively dying. We discussed changing her to PO medication for ease of administration and since Rola could swallow. Both daughter and patient were in agreement with this. Daughter relates that she has had increased swinging going from what appears to be actively dying to improvement. At home she was on morphine pump 30 mg basal and 20 mg bolus every 15 minutes. This was in addition to her 300 mcg of fentanyl. When I walked in the room with nursing today Juan Diego said I think I am on too much morphine I do not like being so doped up. She said she could not stay awake due to the medication. She also had bladder irritability and often times had to get up from the bed and sit on the commode although there was really nothing in her much in her bladder. Nursing did bladder scan her and there was about 190 cc of fluid. She had been having some of these problems at home also. I also asked her about oxygen. she had requested to not use oxygen at home. Nursing reports that she was on 7 L of oxygen. They did not have parameters for her oxygen Pertinent past medical history severe low back pain inoperable, COPD, radiation cystitis and colitis from her cancers, severe anxiety, and depression Her daughter has been her caregiver the last several years. She admits that at this point she is exhausted. Exam Narrative Exam Narrative: Rola is moving back and forth between the commode and the bed. Her eyes are shut sometimes half shut others. She states that she is groggy and thinks is from too much morphine. Her heart is tachycardic breaths are shallow, lips very pale almost bluish. Despite her condition, she expresses gratitude for her care. Objective Objective Clinical Data: Vital Signs Temperature 100.0 F H 12/19/18 21:34 Temperature Source Tympanic 12/19/18 21:34 Pulse 140 H 12/19/18 21:34 Pulse Rhythm Regular 12/19/18 21:13 Pulse 151 H 12/19/18 20:00 Respiratory Rate 20 12/19/18 21:34 Respiratory Effort 12/20/18 08:58 Respiratory Depth Normal 12/20/18 08:58 Respiratory Pattern Normal 12/20/18 08:58 Blood Pressure 132/80 12/19/18 21:34 Blood Pressure Position Sitting 12/19/18 18:53 Pulse Oximetry 96 12/19/18 21:34 Oxygen Delivery Method Nasal Cannula 12/19/18 21:34 Oxygen Flow Rate 8 12/19/18 21:34 Pain Level 7 12/20/18 01:58 Comment 12/19/18 18:53 Intake & Output 12/19/18 12/19/18 12/20/18 11:59 23:59 11:59 Output Total 300 / 300 Balance -300 / -300 Weight 202 lb 13.204 oz Output: Urine 300 / 300 Other: Urine Color Pale Urine Appearance Clear Urine Odor Normal Comment pt up to void x 2 with no output. Voiding Methods Bedside Commode
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
[2018-12-20] MEDS: Phenazopyridine 100 MG TAB PO ×2 (14:30→20:26)
[2018-12-20] MEDS: Oxybutynin 5 MG TAB PO ×2 (14:30→20:15)
--- NOTE | 2018-12-20 16:22 | CHAPLAIN ---
Clinical Bead Picker, Shelbie Geller, asked that I arrange for [employer] Volunteers to sit with Priscila today. Jossie Crocker was here from 11 a.m. to 1 p.m.; Uyencatalina Conner from 1p.m. to 3 p.m. and Josselyn Flood will be in from 7 p.m. to 9 p.m. Priscila's friend Chava has been in some of the day. I will continue to line up volunteers for tomorrow. Priscila agreed to having people sit with her, and responded quietly to questions.
[2018-12-20] MEDS: Acetaminophen 500 MG TAB 1000 MG PO (20:30)
[2018-12-20] MEDS: Senna TAB PO (23:33)
[2018-12-20] MEDS: clonazePAM 0.5 MG TAB 1 MG PO (23:33)
[2018-12-21] MEDS: Promethazine 25 MG TAB PO (05:24)
[2018-12-21] MEDS: LORazepam 2 MG/ML VIAL IV/SC ×2 (05:25→22:09)
[2018-12-21] MEDS: Normal Saline Flush 10 ML SYR ×3 (05:34→22:10)
[2018-12-21] MEDS: Phenazopyridine 100 MG TAB PO ×3 (10:54→19:49)
[2018-12-21] MEDS: clonazePAM 0.5 MG TAB PO ×3 (10:55→16:10)
[2018-12-21] MEDS: DULoxetine 30 MG CAP PO (10:55)
[2018-12-21] MEDS: Docusate Sodium 100 MG CAP PO (10:55)
[2018-12-21] MEDS: Mirabegron 25 MG TABCR PO (10:55)
[2018-12-21] MEDS: fentaNYL 100 MCG PATCH 300 MCG TD (10:56)
[2018-12-21] MEDS: Nystatin POWDER 15 GM JAR TP ×2 (10:58→22:12)
--- NOTE | 2018-12-21 11:07 | CMPROGNOTE_ITS ---
- If Service Date Differs Date of service: 12/21/18 Time of Service: 11:07 Care Management Progress Note S/O: Priscila who prefers to be called Rola is sitting in a chair when CM meets with her today. She engages in conversation but is extremely drowsy and falls asleep mid-sentence. She does express a desire to return home. CM will continue to follow. A: 58 year old female admitted to [facility] on 12/19/2018 for uncontrolled pain, anxiety, and hospice symptom management. P: Anticipate Priscila will be placed in a SNF for end of life care on Hospice when ready for transfer. Referral has been faxed to [facility] by Hospice. CM will continue to follow.
--- NOTE | 2018-12-21 15:47 | CHAPLAIN ---
Comfort [employer] volunteers were with Rola today from 9 a.m. to 2 p.m. When I visited this afternoon she was sleeping.
[2018-12-21] MEDS: Acetaminophen 500 MG TAB 1000 MG PO (19:49)
--- NOTE | 2018-12-21 21:45 | W.PM.PROGNOT ---
Date of Service Date of service: 12/21/18 Time of Service: 07:20 Assessment and Plan Assessment and plan (1) Hospice care patient: Status: Acute Assessment and plan: Does not appear terminally ill. Per Dr Koroma, she has had a very uneven hospice course to date. Continue on hospice admission status for now, but consider discharging her from hospice at time of discharge from hospital. (2) Chronic pain: Status: Chronic Assessment and plan: Oversedated on morphine pump. Transitioned back to fentanyl patches by Dr Koroma. Continue these at discharge. Avoid break-through pain meds if possible. (3) COPD (chronic obstructive pulmonary disease): Status: Chronic Assessment and plan: Primary reason for being on hospice: copd and chronic respiratory failure. Doesn't like to wear oxygen. Some of her chronic hypoxia could be due to high doses of narcotics. Lowering dosages. (4) Uncontrolled pain: Status: Acute Assessment and plan: Looked oversedated today. Will continue to wean off. Pump stopped completely today. Will drop down on fentanyl patches tomorrow. Likely will then change to respite care, for 5 nights, with plan for discharge no later than Dec 27. Placement to be determined. Patient and DPOA open to any facility. Subjective Subjective Patient reports: feels better, pain is less and shortness of breath Interval history since last seen: Dr Koroma, her usual hospice doctor, saw Rola yesterday. She dropped her morphine rate to 10 mg/hr, however overnight, the pump was increased to 16 mg/hr. Today, will get her off the pump altogether. Rola agrees to this. She understands that she will most likely not be going home from this admission. Her daughter Susan cannot care for her. She is burning out. Note that Dr Koroma did add the fentanyl patches back. This will be Rola's main pain control. I spoke to her primary nurse Lisy at 1 pm (I saw Rola this am at 7:30). She had been off the morphine pump x 2 hrs by that time. Lisy Read RN reported that Rola was still a bit sedated. She was not in pain. She was resting. Her daughter had been in to see her. [facility] admission coordinator will give word tomorrow about whether they will accept Rola for LTC, per Gustabo Benavidez RN, from hospice. Exam Narrative Exam Narrative: Obese woman, lying in bed, does not appear to be in acute pain, no grimace, no furrowed brow, no moan. Woke her up for the exam. Looks stated age. Dry skin. Dry MM. Tongue lesion, with yellow slough, left anterior tongue both anterior and posterior sides. Dental hygiene is poor. + halitosis. Neck without LAD or JVD Lungs CTA but distant. Heart Tachycardic to the 110s-120s. Regular. GI obese abdomen, protuberant, + BS wnl, no masses NT ND Ext 1+ edema Neuro moving all extremities, not immediately A and O x 3, as I woke her up. Did not sleep for any duration last night, per RN. psych doesn't appear anxious or depressed at time I am seeing her Objective Objective Clinical Data: Vital Signs Temperature 100.0 F H 12/19/18 21:34 Temperature Source Tympanic 12/19/18 21:34 Pulse 140 H 12/19/18 21:34 Pulse Rhythm Regular 12/19/18 21:13 Pulse 151 H 12/19/18 20:00 Respiratory Rate 20 12/19/18 21:34 Respiratory Effort 12/21/18 19:51 Respiratory Depth Deep 12/21/18 19:51 Respiratory Pattern Irregular 12/21/18 19:51 Blood Pressure 132/80 12/19/18 21:34 Blood Pressure Position Sitting 12/19/18 18:53 Pulse Oximetry 96 12/19/18 21:34 Oxygen Delivery Method Nasal Cannula 12/19/18 21:34 Oxygen Flow Rate 8 12/19/18 21:34 Pain Level 7 12/21/18 19:49 Comment 12/19/18 18:53 Intake & Output 12/20/18 12/21/18 12/21/18 23:59 11:59 23:59 Intake Total 130 / 130 800 / 1040 240 / 1040 Output Total 125 / 725 600 / 725 Balance 130 / -170 675 / 315 -360 / 315 Intake: IV Oral 130 / 130 790 / 1030 240 / 1030 Output: Urine 125 / 725 600 / 725 Other: Urine Color Selden Dark Natalie Urine Appearance Clear Clear Urine Odor Normal None Comment pt refuses veronica catheter refusing catheter at this time pt declines catheter at this time Stool Size Small Small Stool Characteristics Liquid Soft Brown Brown Voiding Methods Bedside Commode Toilet
[2018-12-21] MEDS: clonazePAM 0.5 MG TAB 1 MG PO (22:11)
[2018-12-21] MEDS: Senna TAB PO (22:12)
[2018-12-22] MEDS: Acetaminophen 500 MG TAB 1000 MG PO (06:07)
--- NOTE | 2018-12-22 09:05 | W.PM.PROGNOT ---
Date of Service Date of service: 12/22/18 Time of Service: 08:00 Assessment and Plan Assessment and plan (1) Tobacco dependence: Status: Acute Assessment and plan: continue nicotrol (2) Tongue lesion: Status: Acute Assessment and plan: improving unlikely malignant (3) Uncontrolled pain: Status: Resolved Assessment and plan: now controlled OFF morphine pump on 200 mcg of fentanyl consider dropping to 150 mcg at next patch change in 72 hrs (4) Hospice care patient: Status: Acute Assessment and plan: no longer terminally ill; confirmed with her mother that Rola is at her baseline, where she has been for many years none of her cancers are active; she is in remission for all 3 coming off of hospice she is revoking hospice in order to be able to get into Rehab on rehab status with PT/OT she would like to be more independent (5) Insomnia: Status: Acute Assessment and plan: slept much better with long-acting seroquel on board has untreated VLAD can't tolerate CPAP (6) Palliative care patient: Status: Acute Assessment and plan: followed by Dr Koroma she is away until 01/04/19 she will see Rola at rehab after that (7) Chronic respiratory failure with hypoxia, on home oxygen therapy: Status: Acute Assessment and plan: doesn't always wear her oxygen off oxygen, o2 sat was 78% on RA on 5L was 88%, which is her best, more or less Subjective Subjective Patient reports: no new complaints, feels better, pain is less, tolerating a regular diet and shortness of breath Interval history since last seen: Agreed to wear her oxygen today. Is usually at 5L/min at home. Wasn't wearing it in the hospital much. Reported to me that she had talked to her daughter Susan and Susan had changed her mind, wanted her home with her again. Tried to reach Susan; no answer. Talked to CM who told me that Susan had advised them that Rola would claim Susan had changed her mind. Rola looked significantly better, sitting up in her chair, cleaned up, reading the paper, no increased WOB, no cough, no tachypnea. She said her pain is controlled. She is off the pump for almost 24 hrs. She agrees to going back to her 200 mcg fentanyl patch dose. She thinks the seroquel that she started last night really helped her sleep. She is afraid of gaining weight on it. We discussed that lack of sleep also causes weight gain. She is willing to continue it at discharge. Exam Narrative Exam Narrative: Obese woman, sitting up in a recliner, reading the paper, does not appear to be in acute pain, no grimace, no furrowed brow, no moan. Alert and friendly. VS 02 sat on RA was 78%. 88% of 5L. HR 104. RR 18. Looks stated age. Dry skin. Dry MM. Tongue lesion improving. Does not appear malignant. Poor dental hygeine. Neck without LAD or JVD Lungs CTA but distant. Heart Tachycardic to the 110s-120s. Regular. GI obese abdomen, protuberant, + BS wnl, no masses NT ND Ext 1+ edema Neuro moving all extremities, A and O x 3. psych doesn't appear anxious or depressed . does insist that her daughter has agreed to take her own. Unlikely, per hospital staff. Daugther did not lease picker. Objective Objective Clinical Data: Vital Signs Temperature 100.0 F H 12/19/18 21:34 Temperature Source Tympanic 12/19/18 21:34 Pulse 140 H 12/19/18 21:34 Pulse Rhythm Regular 12/19/18 21:13 Pulse 151 H 12/19/18 20:00 Respiratory Rate 20 12/19/18 21:34 Respiratory Effort Labored 12/22/18 03:04 Respiratory Depth Deep 12/22/18 03:04 Respiratory Pattern Irregular 12/21/18 19:51 Blood Pressure 132/80 12/19/18 21:34 Blood Pressure Position Sitting 12/19/18 18:53 Pulse Oximetry 96 12/19/18 21:34 Oxygen Delivery Method Nasal Cannula 12/19/18 21:34 Oxygen Flow Rate 8 12/19/18 21:34 Pain Level 5 12/22/18 06:07 Comment 12/19/18 18:53 Intake & Output 12/21/18 12/21/18 12/22/18 11:59 23:59 11:59 Intake Total 800 / 1040 240 / 1040 Output Total 125 / 725 600 / 725 200 / 200 Balance 675 / 315 -360 / 315 -180 / -180 Intake: IV Oral 790 / 1030 240 / 1030 Output: Urine 125 / 725 600 / 725 200 / 200 Other: Urine Color Aquasco Dark Natalie Aquasco Urine Appearance Clear Clear Clear Urine Odor Normal None Normal Comment refusing catheter at this time pt declines catheter at this time Stool Size Small Small Stool Characteristics Liquid Soft Brown Brown Voiding Methods Bedside Commode Toilet Bedside Commode
[2018-12-22] MEDS: DULoxetine 30 MG CAP PO (09:47)
[2018-12-22] MEDS: clonazePAM 0.5 MG TAB PO ×3 (09:47→17:10)
[2018-12-22] MEDS: Mirabegron 25 MG TABCR PO (09:47)
[2018-12-22] MEDS: Phenazopyridine 100 MG TAB PO ×2 (09:47→13:50)
[2018-12-22] MEDS: fentaNYL 100 MCG PATCH 200 MCG TD (09:47)
--- NOTE | 2018-12-22 12:53 | PHARADMIT ---
Admission Pharmacy Clinical Review UNCONTROLLED PAIN, ANXIETY PATIENT HERE UNDER 'S CARE, FOR PAIN CONTROL. FENTANYL DECREASED TO 200MCG PATCH Q72HRS FROM 300MCG Q48HRS. MORPHINE CADD WAS DC'D PREVIOUSLY. No VS No Labs BM yesterday Seroquel started, reports that it has helped.
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
[2018-12-22] MEDS: Nystatin POWDER 15 GM JAR TP (14:09)
--- NOTE | 2018-12-22 16:05 | CHAPLAIN ---
Rola was sleeping in her chair the first time I visited. Later in the morning she was up in her chair and awake. Sometimes when she spoke she mumbled many words after the first few, so I didn't understand everything she said. It was clear that she is feeling better than yesterday. She asked for some assistance with her drink. Rola nodded off a time or two while we were talking. I offered on going support.
--- NOTE | 2018-12-22 16:22 | PDOC.CMPRO ---
- If Service Date Differs Date of service: 12/22/18 Time of Service: 16:22 Care Management Progress Note S/O: Rola was sitting up in bed with family by her side when CM met with her. CM discussed with them the plan for Rola to go to [facility] tomorrow morning, and to be discharged from Hospice. Rola was pleasant and agreeable to the plan. A: 58 year old female admitted to [facility] on 12/19/2018 for uncontrolled pain, anxiety, and hospice symptom management. P: Anticipate Priscila will be placed at [facility] when ready for transfer. CM worked with [facility] R and Hospice on discharge planning. Anticipate she will transfer via RCT vs ambulance transfer on 12/23/18. CM will continue to follow.
[2018-12-22] MEDS: clonazePAM 0.5 MG TAB 1 MG PO (23:24)
[2018-12-23 04:02] VITALS: O2SAT 96
[2018-12-23] MEDS: clonazePAM 0.5 MG TAB PO (08:33)
[2018-12-23] MEDS: DULoxetine 30 MG CAP PO (08:33)
[2018-12-23] MEDS: Acetaminophen 500 MG TAB 1000 MG PO (08:36)
[2018-12-23] MEDS: Nystatin POWDER 15 GM JAR TP (08:37)
--- NOTE | 2018-12-23 10:21 | PDOC.CMDIS ---
- If Service Date Differs Date of service: 12/23/18 Time of Service: 10:21 LACE Index Scoring Tool - Questions: Length of Stay (in days): 4 - 6 Acuity (Admit via E.D.?): Yes Comorbidities: Chronic Pulmonary Disease E.D. Visits: 2 - Answers: Total Score: 11 Risk of Readmission: High Risk Care Management Discharge Reason for Hospitalization: Uncontrolled pain, anxiety, Hospice symptom management Discharge Plan: Rola will go to [facility] for skilled nursing care. and Hospice coordinated the plan. She will be discharged from Hospice. Her daughter, Susan will transport her via private vehicle. Rola is agreeable to the plan. Patient/Family Education Needs: Review discharge instructions with Rola, family and rehab staff. Services Needed at Discharge: Retirement Facility
== END 2018-12-23 10:13 | disposition skilled nursing facility (03) | DRG 92 ==
LOC: ER 21:06 → MS 21:13
PROVIDERS: Admitting Provider Family Medicine; Emergency Provider Physician Assistant; PCP Family Medicine; Visit Provider Family Medicine
DX: G89.29 Other chronic pain (principal); J96.11 Chronic respiratory failure with hypoxia; C34.92 Malignant neoplasm of unspecified part of left bronchus or lung; C20 Malignant neoplasm of rectum; Z51.5 Encounter for palliative care; F41.9 Anxiety disorder, unspecified; F51.04 Psychophysiologic insomnia; K14.8 Other diseases of tongue; B97.7 Papillomavirus as the cause of diseases classified elsewhere; F32.9 Major depressive disorder, single episode, unspecified; J44.9 Chronic obstructive pulmonary disease, unspecified; Z74.2 Need for assistance at home and no other household member able to render care
CPT/HCPCS: 36415; 96374; 99223; 99233; 99239; 99285; NC; 99284; J1630; J2060; J3490

== ENCOUNTER 2019-01-13 10:43 | Outpatient (CLI) | payer MEDICARE, MEDICAID, SELFPAY ==
[2019-01-13 11:08] LABS: Abs Immature Grans 0.01 k/cumm (0.0-0.09); Absolute Basophil Count 0.02 k/cumm (0.0-0.2); Absolute Eosinophil Count 0.26 k/cumm (0.0-0.7); Absolute Lymphocyte Count 1.46 k/cumm (1.2-3.4); Absolute Monocyte Count 0.77 k/cumm (0.11-0.7); Absolute Neutrophil Count 3.95 k/cumm (1.2-6.7); Basophils % 0.3; HCT 45.8 % (36.0-46.0); HGB 14.2 g/dL (12.0-15.5); Immature Grans % 0.2; Lymphocytes % 22.6; Mean Corpuscular Hemoglobin 26.6 pg (27.0-33.0); Mean Corpuscular Volume 85.8 fL (80-95); Monocytes % 11.9; Platelet Count 347 x1000/uL (130-400); RBC 5.34 m/cumm (4.00-5.20); White Blood Cell Count 6.47 k/cumm (4.4-10.8)
[2019-01-13 12:39] LABS: ALT 68 U/L (14-59); AST 59 U/L (15-37); Albumin 3.6 g/dL (3.4-5.0); Alkaline Phosphatase 113 U/L (46-116); Anion Gap 8.9 mmol/L (3-11); BUN 7 mg/dL (7-18); Bilirubin, Total 0.4 mg/dL (0.2-1.0); CO2 32.1 mmol/L (21.0-32.0); CREATININE 0.81 mg/dL (0.55-1.02); Calcium 9.4 mg/dL (8.5-10.1); Chloride 99 mmol/L (98-107); Glucose 92 mg/dL (70-100); Potassium 4.3 mmol/L (3.5-5.1); Sodium 140 mmol/L (136-145); Total Protein 8.4 g/dL (6.4-8.2)
== END 2019-01-13 11:03 ==
PROVIDERS: PCP Family Medicine; Visit Provider Family Medicine
DX: J44.9 Chronic obstructive pulmonary disease, unspecified (principal); E78.5 Hyperlipidemia, unspecified; F33.9 Major depressive disorder, recurrent, unspecified
CPT/HCPCS: 36415; 80053; 85025

== ENCOUNTER 2019-01-15 09:01 | Outpatient (CLI) | payer MEDICAID, MEDICARE, SELFPAY | END 2019-01-15 09:21 | PROVIDERS: PCP Family Medicine | DX: R00.0 Tachycardia, unspecified (principal); R94.31 Abnormal electrocardiogram [ECG] [EKG] ==

== ENCOUNTER 2019-01-15 15:31 | Outpatient (REF) | payer MEDICARE, MEDICAID, SELFPAY ==
[2019-01-15 15:59] LABS: Abs Immature Grans 0.01 k/cumm (0.0-0.09); Absolute Basophil Count 0.01 k/cumm (0.0-0.2); Absolute Eosinophil Count 0.15 k/cumm (0.0-0.7); Absolute Lymphocyte Count 1.43 k/cumm (1.2-3.4); Absolute Monocyte Count 0.61 k/cumm (0.11-0.7); Absolute Neutrophil Count 5.67 k/cumm (1.2-6.7); Basophils % 0.1; Eosinophils % 1.9; HCT 43.4 % (36.0-46.0); HGB 13.3 g/dL (12.0-15.5); Immature Grans % 0.1; Lymphocytes % 18.1; Mean Corp. HGB Concentration 30.6 g/dL (32.0-36.0); Mean Corpuscular Hemoglobin 26.3 pg (27.0-33.0); Mean Corpuscular Volume 85.8 fL (80-95); Mean Platelet Volume 10.2 fL (8.0-11.0); Monocytes % 7.7; Neutrophils % 72.1; Platelet Count 268 x1000/uL (130-400); RBC 5.06 m/cumm (4.00-5.20); White Blood Cell Count 7.88 k/cumm (4.4-10.8)
[2019-01-15 16:11] LABS: ALT 61 U/L (14-59); AST 54 U/L (15-37); Albumin 3.3 g/dL (3.4-5.0); Alkaline Phosphatase 102 U/L (46-116); BUN 4 mg/dL (7-18); Bilirubin, Total 0.2 mg/dL (0.2-1.0); Calcium 8.9 mg/dL (8.5-10.1); Chloride 102 mmol/L (98-107); Glucose 118 mg/dL (70-100); Potassium 3.7 mmol/L (3.5-5.1); Sodium 141 mmol/L (136-145); Total Protein 7.6 g/dL (6.4-8.2)
== END 2019-01-15 15:51 ==
LOC: LBN 15:31
PROVIDERS: PCP Family Medicine; Visit Provider Nurse Practitioner Adult Health
DX: R68.89 Other general symptoms and signs (principal); R52 Pain, unspecified
CPT/HCPCS: 80053; 85025

== ENCOUNTER 2019-03-09 16:42 | Outpatient (REF) | payer MEDICARE, MEDICAID, SELFPAY | END 2019-03-09 17:02 | LOC: LBO 16:42 | PROVIDERS: PCP Nurse Practitioner; Visit Provider Student in an Organized Health Care Education/Training Program | DX: L03.90 Cellulitis, unspecified (principal); L30.4 Erythema intertrigo | CPT/HCPCS: 87077; 87070; 87186 ==

== ENCOUNTER 2019-05-13 16:09 | Emergency (ER) | payer MEDICARE, MEDICAID, SELFPAY ==
[2019-05-13] VITALS (37 sets, daily range): BP systolic 93–148; BP diastolic 59–95; PULSE 101–123; RESP 9–23; TEMP 36.5–36.9; O2SAT 96–100
--- NOTE | 2019-05-13 16:15 | DI.CT_ITS ---
EXAM: CT HEAD WO CLINICAL HISTORY: Headache. TECHNIQUE: Imaging Protocol: Axial computed tomography images with coronal and sagittal reformatted images were created and reviewed COMPARISON: No exams were available for comparison FINDINGS: Ventricles and Extra axial spaces: Normal in size and morphology for the patient's age. Hemorrhage: None. Cerebral parenchyma: Normal. Midline shift: None. Brainstem/Cerebellum: Normal. Calvarium: Normal. Visualized Paranasal sinuses/Mastoids: There is mucosal thickening in the left maxillary sinus. The remaining visualized paranasal sinuses are clear. The mastoid air cells are well pneumatized. Soft Tissues: Unremarkable. IMPRESSION: No acute intracranial process. RADIATION DOSE DELIVERED: DATA REPOSITORY: All CT scans at this facility are submitted to the National Radiology Data Registry (NRDR) Dose Index Registry (DIR) with the [employer] (ACR). RADIATION OPTIMIZATION: All CT scans at this facility use at least one of these dose optimization te chniques: automated exposure control; mA and/or kV adjustment per patient size (includes targeted exa ms where dose is matched to clinical indication); or iterative reconstruction.
[2019-05-13] MEDS: Normal Saline 1,000 ML 125 ML IV (16:24)
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
[2019-05-13 16:44] LABS: Abs Immature Grans 0.01 k/cumm (0.0-0.09); Absolute Basophil Count 0.01 k/cumm (0.0-0.2); Absolute Eosinophil Count 0.18 k/cumm (0.0-0.7); Absolute Lymphocyte Count 0.79 k/cumm (1.2-3.4); Absolute Monocyte Count 0.55 k/cumm (0.11-0.7); Absolute Neutrophil Count 3.58 k/cumm (1.2-6.7); Basophils % 0.2; Eosinophils % 3.5; HCT 35.6 % (36.0-46.0); Immature Grans % 0.2 %; Lymphocytes % 15.4; Mean Corp. HGB Concentration 33.7 g/dL (32.0-36.0); Mean Corpuscular Hemoglobin 29.2 pg (27.0-33.0); Mean Corpuscular Volume 86.6 fL (80-95); Mean Platelet Volume 9.4 fL (8.0-11.0); Monocytes % 10.7; Platelet Count 203 x1000/uL (130-400); RBC 4.11 m/cumm (4.00-5.20); White Blood Cell Count 5.12 k/cumm (4.4-10.8)
[2019-05-13 17:04] LABS: ALT 29 U/L (14-59); AST 28 U/L (15-37); Albumin 3.4 g/dL (3.4-5.0); Alkaline Phosphatase 89 U/L (46-116); Anion Gap 4.9 mmol/L (3-11); BUN 10 mg/dL (7-18); Bilirubin, Total 0.3 mg/dL (0.2-1.0); CO2 38.1 mmol/L (21.0-32.0); CREATININE 0.55 mg/dL (0.55-1.02); Calcium 8.8 mg/dL (8.5-10.1); Chloride 99 mmol/L (98-107); Glucose 122 mg/dL (74-106); Magnesium 1.3 mg/dL (1.8-2.4); NT-proBNP 164 pg/mL (<300); Sodium 142 mmol/L (136-145); Total Protein 7.4 g/dL (6.4-8.2)
[2019-05-13 17:05] LABS: Troponin I < 0.05 ng/Ml (<0.06)
[2019-05-13 17:12] LABS: D-Dimer 456 ng/mlFEU (<500)
[2019-05-13] MEDS: Normal Saline - Diluent 50 ML VIAL IV (17:20)
[2019-05-13] MEDS: Omnipaque 350 MG/ML 100 ML BTL IJ (17:21)
--- NOTE | 2019-05-13 17:35 | DI.CT_ITS ---
EXAM: CT CHEST PE CTA CLINICAL HISTORY: Hemoptosis, hx of lung CA. TECHNIQUE: Imaging Protocol: Axial CT angiography was performed with multi-slice acquisition and mu lti-planar and/or 3D reconstructions. CONTRAST MATERIAL: Intravenous: Omnipaque 350 Contrast volume:67 mL FINDINGS: Pulmonary Arteries: No evidence of filling defect to suggest pulmonary emboli. Tracheobronchial tree: See below. Mediastinum and Julia: Stable mildly prominent mediastinal lymph nodes. Pulmonary parenchyma: There is soft tissue density in the left hilar region with involvement of the c entral left bronchial branches. This may represent the patient's known lung carcinoma. It is unchan ged compared to the prior examination from 11/22/2017. Emphysematous changes are present throughout th e lungs. No focal consolidating infiltrates are seen. Pleura: No effusion or pneumothorax. Heart: The heart is not dilated. No pericardial effusion. Aorta: Thoracic aorta non-dilated. Atherosclerosis. No dissection. Upper abdomen: Status post cholecystectomy. Bones: Degenerative changes are present. IMPRESSION: 1. No evidence of pulmonary embolus, thoracic aortic dissection or aneurysm. 2. Stable soft tissue in the left perihilar region affecting the left bronchial branches. DATA REPOSITORY: All CT scans at this facility are submitted to the National Radiology Data Registry (NRDR) Dose Index Registry (DIR) with the [employer] (ACR). RADIATION OPTIMIZATION: All CT scans at this facility use at least one of these dose optimization te chniques: automated exposure control; mA and/or kV adjustment per patient size (includes targeted exa ms where dose is matched to clinical indication); or iterative reconstruction.
--- NOTE | 2019-05-13 18:01 | DI.VRAD_ITS ---
PROCEDURE INFORMATION: Exam: CT Angiography Chest With Contrast Exam date and time: 05/13/2019 5:30 PM Age: 58 years old Clinical indication: Other: Hemoptosis; Prior surgery; Patient HX: HX lung CA TECHNIQUE: Imaging protocol: Computed tomographic angiography of the chest with intravenous contrast. 3D rendering: MIP and/or 3D reconstructed images were created by the technologist. Radiation optimization: All CT scans at this facility use at least one of these dose optimization techniques: automated exposure control; mA and/or kV adjustment per patient size (includes targeted exams where dose is matched to clinical indication); or iterative reconstruction. Contrast material: OMNI 350; Contrast volume: 67 ml; Contrast route: IV; COMPARISON: No relevant prior studies available. FINDINGS: Pulmonary arteries: No acute pulmonary embolus. Aorta: No aortic aneurysm. No aortic dissection. Lungs: Left perihilar mass likely representing known lung cancer with suggestion of invasion into the distal left mainstem bronchus. Emphysematous changes. Left partial lobectomy. Pleural space: Unremarkable. No pneumothorax. No pleural effusion. Heart: No cardiomegaly. No pericardial effusion. Mediastinum: Small hiatal hernia. Gallbladder and bile ducts: Cholecystectomy. Lymph nodes: Mediastinal adenopathy. Bones/joints: Unremarkable. No acute fracture. Soft tissues: Unremarkable. IMPRESSION: 1. No acute pulmonary embolus. 2. Left perihilar mass likely representing known lung cancer with suggestion of invasion into the distal left mainstem bronchus. Dictated and Authenticated by: Phoenix Anderson MD. Ordering:SALLY Yan MD
--- NOTE | 2019-05-13 18:05 | DI.VRAD_ITS ---
PROCEDURE INFORMATION: Exam: CT Head Without Contrast Exam date and time: 05/13/2019 4:27 PM Age: 58 years old Clinical indication: Pain; Headache not specified; Additional info: HX lung CA TECHNIQUE: Imaging protocol: Computed tomography of the head without contrast. Radiation optimization: All CT scans at this facility use at least one of these dose optimization techniques: automated exposure control; mA and/or kV adjustment per patient size (includes targeted exams where dose is matched to clinical indication); or iterative reconstruction. COMPARISON: CT HEAD WO/W FACIALS W 04/02/2014 12:58 PM FINDINGS: Brain: No evidence for acute transcortical infarct. No mass effect or midline shift. No extra-axial collection. No acute intracranial hemorrhage. Basal cisterns are patent. Ventricles: Normal. No ventriculomegaly. Bones/joints: Unremarkable. No acute fracture. Sinuses: Mucosal thickening involving the left maxillary sinus. Mastoid air cells: Visualized mastoid air cells are well aerated. Soft tissues: Unremarkable. IMPRESSION: No hydrocephalus, acute intracranial hemorrhage, or mass effect. Dictated and Authenticated by: Phoenix Anderson MD. Ordering:SALLY Yan MD
[2019-05-13] MEDS: MAGNESIUM SULFATE 1 GM/100 ML BAG IVPB (18:14)
[2019-05-13] MEDS: Potassium Chloride Liquid 20 MEQ PKT 40 MEQ PO (18:40)
== END 2019-05-13 19:20 | disposition home or self-care (01) ==
PROVIDERS: Emergency Provider Registered Nurse Emergency; PCP Nurse Practitioner
DX: R04.2 Hemoptysis (principal); R06.02 Shortness of breath; R07.89 Other chest pain; C34.92 Malignant neoplasm of unspecified part of left bronchus or lung; C34.02 Malignant neoplasm of left main bronchus; Z99.81 Dependence on supplemental oxygen; J44.9 Chronic obstructive pulmonary disease, unspecified; Z87.891 Personal history of nicotine dependence
CPT/HCPCS: 36415; 71275; 80053; 93005; 96361; 96365; 99285; 70450; 83735; 83880; 84484; 85025; 85379; 93010; 99284; J3475; J3490

== ENCOUNTER 2019-10-26 16:31 | Outpatient (REF) | payer MEDICARE, MEDICAID, SELFPAY ==
[2019-10-26 18:38] LABS: HCT 40.7 % (36.0-46.0); HGB 13.4 g/dL (11.2-15.7); MCH 29.2 pg (27.0-33.0); MCHC 32.9 % (32.0-36.0); MCV 88.7 fL (80-95); MPV 10.1 fL (8.0-11.0); Platelet Count 290 10^3/uL (130-400); RBC 4.59 10^6/uL (3.93-5.22); RDW 11.9 % (11.7-14.6); RDW-SD 38.1 fL; WBC 8.33 10^3/uL (4.4-10.8)
[2019-10-26 18:54] LABS: Anion Gap 7.5 mmol/L (3-11); BUN 10 mg/dL (7-18); CO2 35.5 mmol/L (21.0-32.0); CREATININE 0.75 mg/dL (0.55-1.02); Calcium 9.5 mg/dL (8.5-10.1); Chloride 99 mmol/L (98-107); Glucose 93 mg/dL (74-106); Magnesium 1.5 mg/dL (1.8-2.4); Potassium 3.3 mmol/L (3.5-5.1); Sodium 142 mmol/L (136-145); TSH 1.34 uIU/mL (0.36-3.74)
== END 2019-10-26 16:51 ==
LOC: LBN 16:31
PROVIDERS: PCP Nurse Practitioner; Visit Provider Nurse Practitioner Adult Health
DX: F41.1 Generalized anxiety disorder (principal); R05 Cough; R06.02 Shortness of breath; R21 Rash and other nonspecific skin eruption; R51 Headache
CPT/HCPCS: 80048; 85027; 83735; 84443

== ENCOUNTER 2019-10-31 04:29 | Outpatient (CLI) | payer MEDICARE, MEDICAID, SELFPAY ==
--- NOTE | 2019-10-31 10:45 | DI.RAD_ITS ---
EXAM: XR RIBS RT W PA LAT CHEST CLINICAL HISTORY: r/o rib rx R distal ant-lat chest wall; r/o acute, R07.81 PLEURODYNIA, TECHNIQUE: 2D digital imaging was performed. COMPARISON: CR XR CHEST 2V PA LATERAL from 03/08/2018 FINDINGS: MEDIASTINUM: Left hilar prominence is unchanged. HEART: Normal. PULMONARY VASCULATURE: Normal. LUNGS: Clear. COPD. PLEURAL SPACE: No pleural effusion or pneumothorax. BONE:Normal. RIGHT RIBS: Normal. No acute fracture. OTHER FINDINGS:Tip of the indwelling catheter is seen in the superior vena cava. IMPRESSION: 1. No acute pulmonary findings. 2. No evidence of an acute right rib fracture. DATA REPOSITORY: RADIATION DOSE DELIVERED:
== END 2019-10-31 04:49 ==
PROVIDERS: PCP Nurse Practitioner; Visit Provider Nurse Practitioner Adult Health
DX: R07.81 Pleurodynia (principal)
CPT/HCPCS: 71046; 71100

== ENCOUNTER 2020-01-19 03:19 | Emergency (ER) | payer MEDICARE, MEDICAID, SELFPAY ==
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
[2020-01-19 03:23] VITALS: BP 158/107; PULSE 123; RESP 18; TEMP 36.3
[2020-01-19 03:31] VITALS: BP 129/112
--- NOTE | 2020-01-19 03:51 | DI.RAD_ITS ---
EXAM: XR FOOT LT COMPLETE CLINICAL HISTORY: pain swelling. TECHNIQUE: 2D digital imaging was performed. COMPARISON: No exams were available for comparison FINDINGS: BONES: No acute fracture is present. No bony destructive lesion is seen. JOINTS: No dislocation present. SOFT TISSUE: Mild dorsal swelling over the metatarsal region. IMPRESSION: Mild soft tissue swelling. DATA REPOSITORY: RADIATION DOSE DELIVERED:
[2020-01-19] MEDS: Cephalexin 500 MG CAP PO (04:33)
--- NOTE | 2020-01-19 04:36 | DI.VRAD_ITS ---
PROCEDURE INFORMATION: Exam: XR Left Foot Complete Exam date and time: 01/19/2020 3:51 AM Age: 59 years old Clinical indication: Pain; Foot; Left; Additional info: Lt foot pain and swelling. Dropped an o2 tank on left foot recently TECHNIQUE: Imaging protocol: XR Left foot. Views: 3 or more views. COMPARISON: CR LEFT FOOT COMPLETE 03/31/2017 2:16 PM FINDINGS: Bones/joints: No fracture or dislocation. Soft tissues: Mild soft tissue swelling over the dorsum of the foot. IMPRESSION: No acute osseous findings. Dictated and Authenticated by: Francisca Palafox MD. Ordering:BARRON Moya MD
[2020-01-19 04:41] VITALS: BP 144/83; PULSE 120; RESP 18; TEMP 36.5; O2SAT 98
== END 2020-01-19 04:44 | disposition home or self-care (01) ==
LOC: ER 04:45
PROVIDERS: Emergency Provider Emergency Medicine; PCP Nurse Practitioner Adult Health
DX: L03.116 Cellulitis of left lower limb (principal); J44.9 Chronic obstructive pulmonary disease, unspecified; Z87.891 Personal history of nicotine dependence
CPT/HCPCS: 99283; 73630

== ENCOUNTER 2020-02-28 03:42 | Outpatient (CLI) | payer MEDICARE, MEDICAID, SELFPAY ==
[2020-02-29 14:15] LABS: COVID-19 RT-PCR UVMMC Result Negative (Negative)
== END 2020-02-28 04:02 ==
PROVIDERS: PCP Nurse Practitioner Adult Health; Visit Provider Nurse Practitioner Adult Health
DX: R05 Cough (principal)
CPT/HCPCS: U0003

== ENCOUNTER 2020-03-07 04:42 | Outpatient (CLI) | payer MEDICARE, MEDICAID, SELFPAY | END 2020-03-07 05:02 | PROVIDERS: PCP Nurse Practitioner Adult Health; Visit Provider Nurse Practitioner Adult Health | DX: R69 Illness, unspecified (principal) ==

== ENCOUNTER 2020-04-30 04:38 | Outpatient (CLI) | payer MEDICARE, MEDICAID, SELFPAY ==
[2020-04-30 12:48] LABS: HCT 39.9 % (36.0-46.0); HGB 13.5 g/dL (11.2-15.7); MCH 28.8 pg (27.0-33.0); MCHC 33.8 % (32.0-36.0); MCV 85.1 fL (80-95); MPV 9.9 fL (8.0-11.0); Platelet Count 309 10^3/uL (130-400); RBC 4.69 10^6/uL (3.93-5.22); RDW 12.2 % (11.7-14.6); RDW-SD 37.5 fL; WBC 11.71 10^3/uL (4.4-10.8)
[2020-04-30 13:45] LABS: ALT 30 U/L (14-59); AST 23 U/L (15-37); Alkaline Phosphatase 113 U/L (46-116); Anion Gap 10.7 mmol/L (3-11); BUN 7 mg/dL (7-18); Bilirubin, Total 0.2 mg/dL (0.2-1.0); CO2 31.3 mmol/L (21.0-32.0); CREATININE 0.6 mg/dL (0.55-1.02); Calcium 9.6 mg/dL (8.5-10.1); Chloride 100 mmol/L (98-107); Glucose 102 mg/dL (74-106); Potassium 3.2 mmol/L (3.5-5.1); Sodium 142 mmol/L (136-145); Total Protein 8.2 g/dL (6.4-8.2)
== END 2020-04-30 04:39 | disposition home or self-care (01) ==
LOC: LBO 04:39
PROVIDERS: PCP Nurse Practitioner Adult Health; Visit Provider Nurse Practitioner Adult Health
DX: R51.9 Headache, unspecified (principal); K52.0 Gastroenteritis and colitis due to radiation; R42 Dizziness and giddiness; G89.29 Other chronic pain
CPT/HCPCS: 36415; 80053; 85027

== ENCOUNTER 2020-06-16 19:17 | Outpatient (REF) | payer MEDICARE, MEDICAID, SELFPAY ==
[2020-06-18 12:50] LABS: COVID-19 RT-PCR UVMMC Result Negative (Negative)
== END 2020-06-16 19:18 | disposition home or self-care (01) ==
LOC: LBN 19:17
PROVIDERS: PCP Nurse Practitioner Adult Health; Visit Provider Family Medicine
DX: Z20.822 Contact with and (suspected) exposure to COVID-19 (principal); R06.02 Shortness of breath
CPT/HCPCS: U0003; U0005

== ENCOUNTER 2020-08-10 14:21 | Emergency (ER) | payer MEDICARE, MEDICAID, SELFPAY ==
[2020-08-10] VITALS (17 sets, daily range): BP systolic 129; BP diastolic 95; PULSE 107–137; RESP 10–22; TEMP 36.3; O2SAT 93–98
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
--- NOTE | 2020-08-10 15:00 | DI.CT_ITS ---
Exam(s) CT ABDOMEN PELVIS W EXAM: CT ABDOMEN PELVIS W CLINICAL HISTORY: right sided abdominal pain. TECHNIQUE: Imaging Protocol: Axial computed tomography images with coronal and sagittal reformatted images were created and reviewed CONTRAST MATERIAL: Intravenous: Omnipaque 100cc Oral: None COMPARISON: CT CT ABDOMEN PELVIS W from 07/10/[address] ABDOMEN PELVIS W from 07/10/[address] ABDOMEN/ PELVIS CTA from 07/11/[address] ABDOMEN/ PELVIS CTA from 07/11/[address] CHEST PE CTA from 05/13/2019 FINDINGS: VISUALIZED LUNG BASES: No nodules nor pleural effusions evident. ABDOMEN: There is no ascites. There is a moderate size hiatal hernia. LIVER: There is a hepatomegaly and liver is diffusely hypodense consistent with significant steatosis . There are no discrete focal hepatic lesions identified GALLBLADDER/BILIARY: The gallbladder is again noted be surgically absent. CBD diameter is somewhat p rominent, most probably consistent with post cholecystectomy status. There is no dilatation of intra hepatic ducts. PANCREAS: No evidence of pancreatic mass nor dilatation of the pancreatic duct. SPLEEN: Spleen is not enlarged. No obvious intrasplenic lesions. Splenic and portal veins are paten t. ADRENALS: Nodular density at the genu of the left adrenal gland is unchanged probably a small adenoma . Right adrenal gland unremarkable. KIDNEYS:There are few benign cysts again noted in the left kidney, the largest measuring 1.9 cm. No solid renal lesions seen. No focal findings in the right kidney. No calculi nor hydronephrosis on e ither side. No solid renal masses. No calculi nor hydronephrosis.. ABDOMINAL AORTA: Abdominal aorta is not enlarged. LYMPH NODES:There is no retroperitineal nor paraaortic adenopathy. ABDOMINAL WALL: No evidence of significant anterior abdominal wall hernia. GI: There is a colitis pattern of the sigmoid and rectum. The remainder of the colon appears relativ shorty spared although there is abundant fecal material. There is no free air. No abscess. PELVIS: GI: The appendix is not identified as a separate structure but there is no obvious evidence of acute appendicitis.No evidence of sigmoid diverticulitis.Some thickening at the anorectal junction is noted . LYMPH NODES: There is no intrapelvic nor inguinal adenopathy. REPRODUCTIVE: Uterus is again noted to be surgically absent. There are no ovarian masses. URINARY BLADDER: Cystocele noted. OSSEOUS: Bilateral pars defects L5 with anterolisthesis at this level again noted L5 upon S1. Sacroi liac joints appear unremarkable. IMPRESSION: 1. Findings in the distal descending colon and sigmoid and rectosigmoid are consistent with colitis. Extent of involvement of the more proximal colon appears less than was evident 07/10/2018. There is no free air, ascites, nor abscess. No bowel obstruction although there does appear to be abundant f ecal material in the proximal half of the colon. 2. Thickening at the anorectal junction is noted. Possibly related to hemorrhoids, inflammatory dise ase but cannot rule out neoplasm. 3. Gallbladder surgically absent. The biliary tree is not dilated 4. Hepatic steatosis. Hepatomegaly. No splenomegaly no ascites. 5. The uterus is surgically absent. There are no abnormal adnexal masses nor free fluid in the pelv is. 6. No sacroiliitis. Bilateral pars defects at L5 again noted with anterolisthesis L5 upon S1 and ad vanced narrowing of the L5-S1 disc space. Other findings as above. RADIATION DOSE DELIVERED: 773.24mGy.cm Total DLP DATA REPOSITORY: All CT scans at this facility are submitted to the National Radiology Data Registry (NRDR) Dose Index Registry (DIR) with the [employer] ([employer]). RADIATION OPTIMIZATION: All CT scans at this facility use at least one of these dose optimization te chniques: automated exposure control; mA and/or kV adjustment per patient size (includes targeted exa ms where dose is matched to clinical indication); or iterative reconstruction.
[2020-08-10 15:13] LABS: Abs Immature Grans 0.02 10^3/uL (0.0-0.06); Absolute Basophil Count 0.03 10^3/uL (0.0-0.2); Absolute Eosinophil Count 0.23 10^3/uL (0.0-0.7); Absolute Lymphocyte Count 1.58 10^3/uL (1.2-3.4); Absolute Monocyte Count 0.58 10^3/uL (0.1-0.8); Absolute Neutrophil Count 3.85 10^3/uL (1.2-6.7); Basophils % 0.5; Eosinophils % 3.7; HCT 42.2 % (36.0-46.0); Immature Grans % 0.3; Lymphocytes % 25.1; MCH 28.9 pg (27.0-33.0); MCHC 33.2 % (32.0-36.0); MPV 9.6 fL (8.0-11.0); Monocytes % 9.2; Neutrophils % 61.2; Nucleated RBC 0 %; Platelet Count 282 10^3/uL (130-400); RBC 4.85 10^6/uL (3.93-5.22); RDW 12.6 % (11.7-14.6); RDW-SD 40.1 fL; WBC 6.29 10^3/uL (4.4-10.8)
[2020-08-10 15:31] LABS: ALT 37 U/L (14-59); AST 30 U/L (15-37); Albumin 4.1 g/dL (3.4-5.0); Alkaline Phosphatase 113 U/L (46-116); Anion Gap 9.7 mmol/L (3-11); BUN 10 mg/dL (7-18); Bilirubin, Total 0.3 mg/dL (0.2-1.0); CO2 32.3 mmol/L (21.0-32.0); CREATININE 0.8 mg/dL (0.55-1.02); Calcium 9.2 mg/dL (8.5-10.1); Chloride 98 mmol/L (98-107); Glucose 115 mg/dL (74-106); Lipase 22 U/L (73-393); Magnesium 1.7 mg/dL (1.8-2.4); Potassium 3.8 mmol/L (3.5-5.1); Sodium 140 mmol/L (136-145); Total Protein 8.8 g/dL (6.4-8.2)
[2020-08-10 15:48] LABS: Prothrombin Time 9.8 sec (9.3-11.0)
[2020-08-10] MEDS: Omnipaque 350 MG/ML 100 ML BTL IJ (16:03)
[2020-08-10] MEDS: Normal Saline - Diluent 50 ML VIAL IV (16:03)
[2020-08-10] MEDS: Normal Saline Flush 10 ML SYR IVP (16:08)
--- NOTE | 2020-08-10 17:09 | DI.VRAD_ITS ---
PROCEDURE INFORMATION: Exam: CT Abdomen And Pelvis With Contrast Exam date and time: 08/10/2020 3:03 PM Age: 59 years old Clinical indication: Generalized; Patient HX: Right sided abdominal pain TECHNIQUE: Imaging protocol: Computed tomography of the abdomen and pelvis with contrast. COMPARISON: CT ABDOMEN PELVIS W 07/10/2018 10:54 PM FINDINGS: Lungs: Scarring/atelectasis at the lung bases without acute findings. Mediastinal space: A moderate hiatal hernia is present. Liver: There is enlargement of the liver, measuring 17 cm.There is a diffuse decrease in hepatic parenchymal density, consistent with fatty infiltration. The liver is otherwise unremarkable. Gallbladder and bile ducts: Prior cholecystectomy. Mild intra-and extrahepatic biliary ductal dilation is most likely the sequela of prior cholecystectomy in the absence of clinical symptomatology. Pancreas: Normal. No ductal dilation. Spleen: Normal. No splenomegaly. Adrenal glands: Mild nonspecific bilateral adrenal gland thickening is most probably senile in etiology. Adrenal glands are otherwise unremarkable. Kidneys and ureters: There are multiple simple left renal cysts. Largest left renal cyst measures 2 cm. The left kidney is otherwise unremarkable. The right kidney is normal. The ureters are normal. Stomach and bowel: Long segment of bowel wall thickening involving the distal descending colon and sigmoid. There is pericolonic fat stranding at the distal descending colon and sigmoid. There is asymmetric/eccentric wall thickening at the anus/anal rectal junction (image 79 series 4 and image 82 series 5). Mild colonic diverticulosis. There is no evidence of intestinal obstruction. Appendix: Appendix is not confidently visualized. Intraperitoneal space: Trace free fluid in the pelvis. There is no free intraperitoneal air. Vasculature: The vasculature demonstrates diffuse moderate atherosclerotic calcification. Lymph nodes: Unremarkable. No enlarged lymph nodes. Urinary bladder: Unremarkable as visualized. Reproductive: There has been a hysterectomy. 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 No acute skeletal pathology. Mild multilevel degenerative changes of the spine, as manifested by multilevel anterior osteophytes and multilevel decrease in intervertebral disc space. Soft tissues: Calcified injection granulomas are noted in the subcutaneous tissues of the buttocks. IMPRESSION: 1. Findings at the distal descending colon and sigmoid are most in favor with infectious/inflammatory colitis in the appropriate clinical setting. 2. Findings at the anus/anal rectal junction could be related to: Hemorrhoids, focal infectious/inflammatory process, or infiltrative/neoplastic disease at this level. 3. Incidental findings as detailed above. Dictated and Authenticated by: Carmelo Becerra MD. Ordering:ELISE Nichols MD
[2020-08-10 17:30] LABS: Bilirubin Negative (Negative); Blood Trace-intact (Negative); Clarity Clear (Clear); Glucose Negative (Negative); Ketones Negative (Negative); Leukocyte Esterase Negative (Negative); Nitrite Negative (Negative); Specific Gravity <= 1.005 (1.005-1.025); Urobilinogen 0.2 EU/dL (Up TO 0.2); pH 5.5 (5-8)
--- NOTE | 2020-08-10 17:38 | NUR.NOTE ---
Nursing Note: Referral faxed to [facility] for follow up in 2 weeks for colitis. Skylar Humphrey
[2020-08-10 17:40] LABS: Bacteria Negative HPF (Negative); C & S Indicated? No; Casts Negative LPF (Negative); Crystals Negative HPF (Negative); Epithelial Cells Rare HPF (Negative); Mucus Negative (Negative); Other Cells Negative (Negative); RBC 0-2 HPF (0-2); WBC Negative HPF (0-5)
[2020-08-10] MEDS: metroNIDAZOLE 500 MG TAB PO (17:40)
== END 2020-08-10 17:58 | disposition home or self-care (01) ==
PROVIDERS: Physician Assistant; Emergency Provider Registered Nurse Emergency; PCP Nurse Practitioner Adult Health
DX: K52.89 Other specified noninfective gastroenteritis and colitis (principal)
CPT/HCPCS: 36415; 80053; 83690; 96374; 99285; 74177; 81003; 81015; 83735; 85025; 85610; 99283; J3490

== ENCOUNTER 2020-11-30 22:46 | Emergency (ER) | payer MEDICARE, MEDICAID, SELFPAY ==
[2020-11-30 22:58] VITALS: BP 118/85; PULSE 114; RESP 25; TEMP 36.8; O2SAT 90
[2020-11-30 23:09] VITALS: RESP 25
--- NOTE | 2020-11-30 23:15 | DI.CT_ITS ---
Exam(s) CT CHEST PE ABD PELVIS W EXAM: CT CHEST PE ABD PELVIS W CLINICAL HISTORY: SOB, hypoxic, fever, chest pain, r/o pe. TECHNIQUE: Imaging Protocol: Axial computed tomography images with coronal and sagittal reformatted images were created and reviewed CONTRAST MATERIAL: Intravenous: Omnipaque 350 Contrast volume:100 ml Oral: no COMPARISON: CT CT CHEST PE CTA from 05/13/[address] CHEST PE CTA from 05/13/2019 CR XR RIBS RT W PA LAT CHEST from 10/31/2019 CR XR RIBS RT W PA LAT CHEST from 10/31/[address] ABDOMEN PELVIS W from 08/10/2020 FINDINGS: CHEST: Tracheobronchial tree: Patent where visualized. Mediastinum and Julia: No dominant adenopathy or fluid collection. Small size hiatal hernia. Pulmonary parenchyma: Postsurgical scarring near left hilum. No consolidation or dominant measurable mass. Emphysematous and fibrotic changes. Question small infiltrate anterior right upper lobe. Mi ld basilar scarring and atelectasis. Pleura: No effusion or pneumothorax. Lymph nodes: Within normal limits. Aorta: Thoracic portion non-dilated. Mild atherosclerotic changes. Heart: Not enlarged. Bones: Unremarkable for age. Stable sclerotic focus T6 Port over right chest. ABDOMEN: Liver: Fatty infiltration. Mildly nodular.. No measurable mass. Gallbladder and biliary tract: Status post cholecystectomy. No biliary dilation. Pancreas: Atrophic. No abnormal calcifications or inflammatory process. Spleen: Normal. Kidneys: Normal size, contour and axis. No radiodense stones or obstructive uropathy. Left renal cys ts. Adrenal glands: No masses seen. Aorta: Abdominal portion non-dilated. Lymph nodes: Within normal limits. Soft tissues: Unremarkable. PELVIS: Bladder: Symmetric distention, no gross wall thickening. Bowel: No obstruction thickening rectosigmoid, consistent with colitis. Mild diverticulosis. Large quantity of stool in ascending and transverse colon.. Peritoneal cavity: No ascites, collection or mesenteric inflammatory response. Bones: Stable L5 spondylolysis and L5-S1 spondylolisthesis. Stable sclerotic focus L1. Reproductive organs: status post hysterectomy. IMPRESSION: Postsurgical changes are around the left hilum. Emphysematous changes. Small right upper lobe infil trate. Wall thickening of the rectosigmoid consistent with colitis. Similar appearance to previous exam. RADIATION DOSE DELIVERED: 1,099.59mGy.cm Total DLP DATA REPOSITORY: All CT scans at this facility are submitted to the National Radiology Data Registry (NRDR) Dose Index Registry (DIR) with the [employer] ([employer]). RADIATION OPTIMIZATION: All CT scans at this facility use at least one of these dose optimization te chniques: automated exposure control; mA and/or kV adjustment per patient size (includes targeted exa ms where dose is matched to clinical indication); or iterative reconstruction.
--- NOTE | 2020-11-30 23:15 | RT.EKG_ITS ---
APPROVED REPORT Exam: Resting ECG Reason for Exam: sob Patient Location: E HR:113 bpm ECG Measurements Heart Rate 113 AXIS ID 140 P 87 QRSd 93 QRS -5 QT 348 T 55 QTc 477 Conclusion Sinus tachycardia...rate> 99 Anterior infarct, age indeterminate...Q >35mS, T neg, in V2-V5 Physician: sinus tachy, no significant ST elevation, no stemi, unchanged from 05/18
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
[2020-11-30 23:54] LABS: Source Nasal/Nares
[2020-11-30 23:55] LABS: Lactate 1.3 mmol/L (0.6-1.4)
[2020-11-30 23:57] LABS: Abs Immature Grans 0.09 10^3/uL (0.0-0.06); Absolute Basophil Count 0.02 10^3/uL (0.0-0.2); Absolute Eosinophil Count 0.31 10^3/uL (0.0-0.7); Absolute Lymphocyte Count 0.88 10^3/uL (1.2-3.4); Absolute Monocyte Count 1.27 10^3/uL (0.1-0.8); Absolute Neutrophil Count 5.78 10^3/uL (1.2-6.7); Basophils % 0.2; Eosinophils % 3.7; HCT 35.8 % (36.0-46.0); HGB 11.8 g/dL (11.2-15.7); Immature Grans % 1.1; Lymphocytes % 10.5; MCH 28.8 pg (27.0-33.0); MCV 87.3 fL (80-95); MPV 9.8 fL (8.0-11.0); Monocytes % 15.2; Neutrophils % 69.3; Nucleated RBC 0 %; Platelet Count 232 10^3/uL (130-400); RDW 11.9 % (11.7-14.6); RDW-SD 38.5 fL; WBC 8.35 10^3/uL (4.4-10.8)
[2020-12-01] VITALS (101 sets, daily range): BP systolic 114; BP diastolic 75; PULSE 114; RESP 7–36; TEMP 36.8; O2SAT 94–100
[2020-12-01 00:03] LABS: Bilirubin Negative (Negative); Blood Small (Negative); Clarity Clear (Clear); Glucose Negative (Negative); Ketones Negative (Negative); Leukocyte Esterase Negative (Negative); Nitrite Negative (Negative); Urobilinogen 0.2 EU/dL (Up TO 0.2)
[2020-12-01 00:10] LABS: Bacteria Rare HPF (Negative); Casts Negative LPF (Negative); Crystals Few Amorphous HPF (Negative); Epithelial Cells Moderate HPF (Negative); Mucus Trace (Negative); WBC 0-2 HPF (0-5)
[2020-12-01 00:11] LABS: C & S Indicated? No
[2020-12-01 00:12] LABS: ALT 19 U/L (14-59); AST 14 U/L (15-37); Albumin 3.1 g/dL (3.4-5.0); Alkaline Phosphatase 95 U/L (46-116); Anion Gap 1.5 mmol/L (3-11); BUN 5 mg/dL (7-18); Bilirubin, Total 0.3 mg/dL (0.2-1.0); CO2 40.5 mmol/L (21.0-32.0); CREATININE 0.6 mg/dL (0.55-1.02); Calcium 9.2 mg/dL (8.5-10.1); Chloride 98 mmol/L (98-107); Glucose 99 mg/dL (74-106); Sodium 140 mmol/L (136-145); Total Protein 7.7 g/dL (6.4-8.2)
[2020-12-01 00:13] LABS: Troponin I < 0.05 ng/mL (<0.06)
[2020-12-01 00:15] LABS: Potassium 2.7 mmol/L (3.5-5.1)
[2020-12-01] MEDS: Omnipaque 350 MG/ML 100 ML BTL IJ (00:26)
[2020-12-01] MEDS: HYDROmorphone 2 MG/ML VIAL 1 MG IVP ×2 (00:30→02:53)
[2020-12-01 00:47] LABS: Magnesium 1.7 mg/dL (1.8-2.4)
[2020-12-01 00:49] LABS: COVID-19 PCR Negative (Negative)
[2020-12-01] MEDS: POTASSIUM CHLORIDE 20 MEQ/100 ML BAG 50 MEQ IVPB (01:01)
[2020-12-01] MEDS: Potassium Chloride 20 MEQ TABCR 40 MEQ PO (01:01)
[2020-12-01] MEDS: Normal Saline - Diluent 50 ML VIAL IV (01:11)
[2020-12-01] MEDS: Normal Saline Flush 10 ML SYR IVP (01:12)
--- NOTE | 2020-12-01 01:22 | DI.VRAD_ITS ---
PROCEDURE INFORMATION: Exam: CTA Chest With Contrast Exam date and time: 11/30/2020 11:20 PM Age: 59 years old Clinical indication: Bloating; Abdominal pain; Generalized; Shortness of breath; Chest pressure; Prior surgery; Surgery date: 6+ months; Surgery type: Lung resection 1999, vulvectomy, cholecystectomy. Hysterectomy; Patient HX: Cancer (lung/rectal), hypoxic, febrile, SOB, , hypoxic, chest pain, R/O pe, copd TECHNIQUE: Imaging protocol: Computed tomographic angiography of the chest with contrast. 3D rendering (Not supervised by radiologist): MIP and/or 3D reconstructed images were created by the technologist. Radiation optimization: All CT scans at this facility use at least one of these dose optimization techniques: automated exposure control; mA and/or kV adjustment per patient size (includes targeted exams where dose is matched to clinical indication); or iterative reconstruction. Contrast material: OMNIPAQUE 350; Contrast volume: 100 ml; Contrast route: INTRAVENOUS (IV); COMPARISON: CT CHEST PE CTA 05/13/2019 5:29 PM FINDINGS: Pulmonary arteries: Normal. No pulmonary emboli. Aorta: Unremarkable. No aortic aneurysm. No aortic dissection. Lungs: Patient status post partial pneumonectomy on the left. Centrilobular emphysema is present. Scattered slightly nodular opacities may reflect superimposed pneumonia/small airways disease most prominent on the right. Follow-up recommended to ensure resolution. Pleural spaces: Unremarkable. No pneumothorax. No pleural effusion. Heart: Unremarkable. No cardiomegaly. No pericardial effusion. Lymph nodes: Unremarkable. No enlarged lymph nodes. Diaphragm: Small hiatal hernia Bones/joints: Unremarkable. No acute fracture. Soft tissues: Unremarkable. IMPRESSION: Emphysema Scattered slightly nodular opacities may reflect superimposed pneumonia/small airways disease most prominent on the right. Follow-up recommended to ensure resolution. PROCEDURE INFORMATION: Exam: CT Angiography Abdomen With Contrast Exam date and time: 11/30/2020 11:20 PM Age: 59 years old Clinical indication: Bloating; Abdominal pain; Generalized; Shortness of breath; Chest pressure; Prior surgery; Surgery date: 6+ months; Surgery type: Lung resection 1999, vulvectomy, cholecystectomy. Hysterectomy; Patient HX: Cancer (lung/rectal), hypoxic, febrile, SOB, , hypoxic, chest pain, R/O pe, copd TECHNIQUE: Imaging protocol: Computed tomographic angiography images of the abdomen with intravenous contrast material. Radiation optimization: All CT scans at this facility use at least one of these dose optimization techniques: automated exposure control; mA and/or kV adjustment per patient size (includes targeted exams where dose is matched to clinical indication); or iterative reconstruction. Contrast material: OMNIPAQUE 350; Contrast volume: 100 ml; Contrast route: INTRAVENOUS (IV); COMPARISON: CT CHEST PE CTA 05/13/2019 5:29 PM FINDINGS: Aorta: No aortic aneurysm. No aortic dissection. Celiac trunk and mesenteric arteries: No occlusion or significant stenosis. Renal arteries: No occlusion or significant stenosis. Liver: Hepatic steatosis is present. Gallbladder and bile ducts: The patient is status post cholecystectomy. Pancreas: Peripancreatic stranding may reflect mild pancreatitis for which correlation with enzymes is recommended. Spleen: Normal. No splenomegaly. Adrenals: Normal. No mass. Kidneys and ureters: Normal. No hydronephrosis. Stomach and bowel: Colonic wall thickening involving the distal descending colon through rectum compatible with a nonspecific distal colitis. Colonic diverticulosis is present without evidence for inflammation. Colonic diverticulosis is present without evidence for inflammation. Lymph nodes: Unremarkable. No enlarged lymph nodes. Intraperitoneal space: Unremarkable. No free air. No significant fluid collection. Reproductive: The patient is status post hysterectomy. Bones/joints: Unremarkable. No acute fracture. No dislocation. Soft tissues: Unremarkable. IMPRESSION: 1. Colonic wall thickening involving the distal descending colon through rectum compatible with a nonspecific distal colitis. 2. Peripancreatic stranding may reflect mild pancreatitis for which correlation with enzymes is recommended. Dictated and Authenticated by: Micah Powers MD. Ordering:KATLIN Monroe MD
[2020-12-01] MEDS: levoFLOXacin 750 MG/150 ML BAG 100 MG IVPB (02:13)
== END 2020-12-01 04:21 | disposition home or self-care (01) ==
PROVIDERS: Emergency Provider Student in an Organized Health Care Education/Training Program; PCP Nurse Practitioner Adult Health
DX: J18.9 Pneumonia, unspecified organism (principal); E87.6 Hypokalemia; R06.02 Shortness of breath; R09.02 Hypoxemia; Z87.891 Personal history of nicotine dependence
CPT/HCPCS: 71275; 74177; 80053; 87040; 87449; 87635; 93005; 96365; 96366; 96367; 96375; 96376; 99285; 81003; 81015; 83605; 83735; 84484; 85025; 93010; J1956; J3480; J3490

== ENCOUNTER 2020-12-08 15:42 | Outpatient (REF) | payer MEDICARE, MEDICAID, SELFPAY ==
[2020-12-08 16:46] LABS: Abs Immature Grans 0.18 10^3/uL (0.0-0.06); Absolute Basophil Count 0.03 10^3/uL (0.0-0.2); Absolute Eosinophil Count 0.06 10^3/uL (0.0-0.7); Absolute Lymphocyte Count 0.72 10^3/uL (1.2-3.4); Absolute Monocyte Count 0.56 10^3/uL (0.1-0.8); Absolute Neutrophil Count 7.75 10^3/uL (1.2-6.7); Basophils % 0.3; Eosinophils % 0.6; HCT 36.6 % (36.0-46.0); Immature Grans % 1.9; Lymphocytes % 7.7; MCH 29.3 pg (27.0-33.0); MCHC 32.8 % (32.0-36.0); MCV 89.3 fL (80-95); MPV 9.1 fL (8.0-11.0); Neutrophils % 83.5; Nucleated RBC 0 %; RDW 12.2 % (11.7-14.6); RDW-SD 39.7 fL
[2020-12-08 16:48] LABS: Anion Gap 4.1 mmol/L (3-11); BUN 7 mg/dL (7-18); CO2 36.9 mmol/L (21.0-32.0); CREATININE 0.7 mg/dL (0.55-1.02); Calcium 8.9 mg/dL (8.5-10.1); Chloride 99 mmol/L (98-107); Glucose 124 mg/dL (74-106); Magnesium 1.8 mg/dL (1.8-2.4); Platelet Count 383 10^3/uL (130-400); Potassium 4.3 mmol/L (3.5-5.1); Sodium 140 mmol/L (136-145)
== END 2020-12-08 15:43 | disposition home or self-care (01) ==
LOC: LBN 15:42
PROVIDERS: PCP Nurse Practitioner Adult Health; Visit Provider Nurse Practitioner Adult Health
DX: E83.42 Hypomagnesemia (principal); E87.6 Hypokalemia; R09.02 Hypoxemia; J18.9 Pneumonia, unspecified organism; R79.81 Abnormal blood-gas level
CPT/HCPCS: 80048; 83735; 85025

== ENCOUNTER 2020-12-16 17:45 | Outpatient (REF) | payer MEDICARE, MEDICAID, SELFPAY ==
[2020-12-16 18:48] LABS: Absolute Basophil Count 0.02 10^3/uL (0.0-0.2); Absolute Eosinophil Count 0.08 10^3/uL (0.0-0.7); Absolute Lymphocyte Count 0.69 10^3/uL (1.2-3.4); Absolute Monocyte Count 0.49 10^3/uL (0.1-0.8); Absolute Neutrophil Count 8.77 10^3/uL (1.2-6.7); Basophils % 0.2; Eosinophils % 0.8; HCT 36.4 % (36.0-46.0); HGB 11.5 g/dL (11.2-15.7); Lymphocytes % 6.8; MCH 28.8 pg (27.0-33.0); MCHC 31.6 % (32.0-36.0); MCV 91.2 fL (80-95); MPV 10.1 fL (8.0-11.0); Monocytes % 4.8; Neutrophils % 86.4; Nucleated RBC 0 %; Platelet Count 290 10^3/uL (130-400); RBC 3.99 10^6/uL (3.93-5.22); RDW 11.9 % (11.7-14.6); RDW-SD 40.1 fL; WBC 10.15 10^3/uL (4.4-10.8)
[2020-12-16 19:04] LABS: Potassium 3.5 mmol/L (3.5-5.1)
== END 2020-12-16 17:46 | disposition home or self-care (01) ==
LOC: LBN 17:45
PROVIDERS: PCP Nurse Practitioner Adult Health; Visit Provider Nurse Practitioner Adult Health
DX: J18.9 Pneumonia, unspecified organism (principal); R79.81 Abnormal blood-gas level; E87.6 Hypokalemia; R09.02 Hypoxemia
CPT/HCPCS: 87077; 84132; 85025; 87070; 87186; 87205

== ENCOUNTER 2020-12-23 17:55 | Outpatient (REF) | payer MEDICARE, MEDICAID, SELFPAY ==
[2020-12-23 21:30] LABS: Anion Gap 3.6 mmol/L (3-11); BUN 6 mg/dL (7-18); CO2 39.4 mmol/L (21.0-32.0); CREATININE 0.5 mg/dL (0.55-1.02); Calcium 8.7 mg/dL (8.5-10.1); Chloride 99 mmol/L (98-107); Glucose 97 mg/dL (74-106); Potassium 3.6 mmol/L (3.5-5.1); Sodium 142 mmol/L (136-145)
== END 2020-12-23 17:56 | disposition home or self-care (01) ==
LOC: LBN 17:55
PROVIDERS: PCP Nurse Practitioner Adult Health; Visit Provider Nurse Practitioner Adult Health
DX: R79.81 Abnormal blood-gas level (principal); J18.9 Pneumonia, unspecified organism
CPT/HCPCS: 80048; 85025

== ENCOUNTER 2020-12-25 13:16 | Outpatient (REF) | payer MEDICARE, MEDICAID, SELFPAY ==
[2020-12-25 14:53] LABS: Abs Immature Grans 0.01 10^3/uL (0.0-0.06); Absolute Basophil Count 0.01 10^3/uL (0.0-0.2); Absolute Eosinophil Count 0.23 10^3/uL (0.0-0.7); Absolute Lymphocyte Count 1.01 10^3/uL (1.2-3.4); Absolute Monocyte Count 0.68 10^3/uL (0.1-0.8); Absolute Neutrophil Count 2.88 10^3/uL (1.2-6.7); Basophils % 0.2; Eosinophils % 4.8; HGB 10.9 g/dL (11.2-15.7); Immature Grans % 0.2; MCH 28.7 pg (27.0-33.0); MCHC 31.1 % (32.0-36.0); MCV 92.1 fL (80-95); MPV 10.4 fL (8.0-11.0); Monocytes % 14.1; Neutrophils % 59.7; Nucleated RBC 0 %; Platelet Count 192 10^3/uL (130-400); RDW 11.6 % (11.7-14.6); RDW-SD 39.3 fL; WBC 4.82 10^3/uL (4.4-10.8)
== END 2020-12-25 13:17 | disposition home or self-care (01) ==
LOC: LBN 13:16
PROVIDERS: PCP Nurse Practitioner Adult Health; Visit Provider Nurse Practitioner Adult Health
DX: J18.9 Pneumonia, unspecified organism (principal)
CPT/HCPCS: 85025

== ENCOUNTER 2021-01-07 17:32 | Outpatient (REF) | payer MEDICARE, MEDICAID, SELFPAY ==
[2021-01-09 10:32] LABS: IgA 241 mg/dL (85-499); IgG 805 mg/dL (610-1,616); IgM 152 mg/dL (35-242)
[2021-01-09 11:08] LABS: IgE 7 IU/mL (<158)
== END 2021-01-07 17:33 | disposition home or self-care (01) ==
LOC: LBN 17:32
PROVIDERS: PCP Nurse Practitioner Adult Health; Visit Provider Student in an Organized Health Care Education/Training Program
DX: J15.1 Pneumonia due to Pseudomonas (principal)
CPT/HCPCS: 82784; 82785

== ENCOUNTER 2021-01-27 11:15 | Outpatient (REF) | payer MEDICARE, MEDICAID, SELFPAY | END 2021-01-27 11:16 | disposition home or self-care (01) | LOC: LBN 11:15 | PROVIDERS: PCP Nurse Practitioner Adult Health; Visit Provider Student in an Organized Health Care Education/Training Program | DX: J15.1 Pneumonia due to Pseudomonas (principal) | CPT/HCPCS: 87116; 87206; 87070; 87205 ==

== ENCOUNTER 2021-02-25 18:17 | Outpatient (REF) | payer MEDICARE, MEDICAID, SELFPAY ==
[2021-02-25 17:57] LABS: HCT 41.3 % (36.0-46.0); HGB 13.4 g/dL (11.2-15.7); MCH 28.9 pg (27.0-33.0); MCHC 32.4 % (32.0-36.0); MCV 89.2 fL (80-95); MPV 10.8 fL (8.0-11.0); Platelet Count 276 10^3/uL (130-400); RBC 4.63 10^6/uL (3.93-5.22); RDW 12.4 % (11.7-14.6); RDW-SD 40.6 fL; WBC 5.28 10^3/uL (4.4-10.8)
== END 2021-02-25 18:18 | disposition home or self-care (01) ==
LOC: LBN 18:17
PROVIDERS: PCP Nurse Practitioner Adult Health; Visit Provider Nurse Practitioner Adult Health
DX: K52.0 Gastroenteritis and colitis due to radiation (principal); K21.9 Gastro-esophageal reflux disease without esophagitis
CPT/HCPCS: 85027

== ENCOUNTER 2021-04-10 15:33 | Outpatient (REF) | payer MEDICARE, MEDICAID, SELFPAY | END 2021-04-10 15:34 | disposition home or self-care (01) | LOC: LBN 15:33 | PROVIDERS: PCP Nurse Practitioner Adult Health; Visit Provider Student in an Organized Health Care Education/Training Program | DX: J15.1 Pneumonia due to Pseudomonas (principal); R05.8 Other specified cough | CPT/HCPCS: 87070; 87205 ==

== ENCOUNTER 2021-05-19 17:14 | Outpatient (REF) | payer MEDICARE, MEDICAID, SELFPAY ==
[2021-05-19 18:02] LABS: Abs Immature Grans 0.01 10^3/uL (0.0-0.06); Absolute Basophil Count 0.02 10^3/uL (0.0-0.2); Absolute Eosinophil Count 0.15 10^3/uL (0.0-0.7); Absolute Lymphocyte Count 1.23 10^3/uL (1.2-3.4); Absolute Monocyte Count 0.51 10^3/uL (0.1-0.8); Absolute Neutrophil Count 3.45 10^3/uL (1.2-6.7); Basophils % 0.4; Eosinophils % 2.8; HCT 36.1 % (36.0-46.0); HGB 12.1 g/dL (11.2-15.7); Immature Grans % 0.2; Lymphocytes % 22.9; MCH 28.9 pg (27.0-33.0); MCHC 33.5 % (32.0-36.0); MCV 86.4 fL (80-95); MPV 10.2 fL (8.0-11.0); Monocytes % 9.5; Neutrophils % 64.2; Nucleated RBC 0 %; Platelet Count 236 10^3/uL (130-400); RBC 4.18 10^6/uL (3.93-5.22); RDW 12.2 % (11.7-14.6); RDW-SD 38.6 fL; Reticulocyte 1.1 % (0.5-2.4); WBC 5.37 10^3/uL (4.4-10.8)
[2021-05-19 18:35] LABS: ALT 25 U/L (14-59); AST 26 U/L (15-37); Albumin 3.8 g/dL (3.4-5.0); Alkaline Phosphatase 95 U/L (46-116); Anion Gap 3.2 mmol/L (3-11); BUN 7 mg/dL (7-18); Bilirubin, Total 0.3 mg/dL (0.2-1.0); CO2 37.8 mmol/L (21.0-32.0); CREATININE 0.5 mg/dL (0.55-1.02); Calcium 8.6 mg/dL (8.5-10.1); Chloride 99 mmol/L (98-107); Glucose 88 mg/dL (74-106); Magnesium 1.6 mg/dL (1.8-2.4); Potassium 3.8 mmol/L (3.5-5.1); Sodium 140 mmol/L (136-145); Total Protein 7.2 g/dL (6.4-8.2); Vitamin B12 244 pg/mL (193-986)
[2021-05-19 19:00] LABS: Ferritin 67 ng/mL (8-252)
== END 2021-05-19 17:15 | disposition home or self-care (01) ==
LOC: LBN 17:14
PROVIDERS: PCP Nurse Practitioner Adult Health; Visit Provider Nurse Practitioner Adult Health
DX: K62.7 Radiation proctitis (principal); M89.8X9 Other specified disorders of bone, unspecified site; R11.0 Nausea; Z85.048 Personal history of other malignant neoplasm of rectum, rectosigmoid junction, and anus; Z85.118 Personal history of other malignant neoplasm of bronchus and lung; D12.6 Benign neoplasm of colon, unspecified
CPT/HCPCS: 80053; 82607; 82728; 83735; 85025; 85045

== ENCOUNTER 2021-08-19 15:38 | Outpatient (REF) | payer MEDICARE, MEDICAID, SELFPAY ==
--- NOTE | 2021-08-19 15:00 | LIPBX_PTH ---
PATIENT: Priscila Chowdary LOC: [facility] U#:[id number] AGE/SX: 60/F ROOM: RE08/19/[address]: Sonu Ye MD : 1960 BED: DIS: 08/19/2021 SPEC #: [id number] RECD: 08/20/21 12:30 STATUS: HOLLY REMesfin #: [id number] TEODORO: 08/19/21 15:[address]: Sonu Ye DEPT: Surgical Specimen RECD BY: Jade Matias ENTERED: 08/20/21 12:31 SP TYPE: LIPBX OTHR DR: Sarah Siddiqi APRN Tissues: 1 - LIP BIOPSY/RESECTION Procedures: GROSS AND MICRO LEVEL 4 Comments: [id number]
== END 2021-08-19 15:39 | disposition home or self-care (01) ==
LOC: LBN 15:38
PROVIDERS: PCP Nurse Practitioner Adult Health; Visit Provider Otolaryngology
DX: B07.8 Other viral warts (principal); K13.0 Diseases of lips
CPT/HCPCS: 88305

== ENCOUNTER 2021-09-10 16:23 | Outpatient (REF) | payer MEDICARE, MEDICAID, SELFPAY ==
[2021-09-10 18:25] LABS: HCT 34.9 % (36.0-46.0); HGB 11.3 g/dL (11.2-15.7); MCH 29.1 pg (27.0-33.0); MCHC 32.4 % (32.0-36.0); MCV 90 fL (80-95); Platelet Count 292 10^3/uL (130-400); RBC 3.88 10^6/uL (3.93-5.22); RDW 11.8 % (11.7-14.6); RDW-SD 38.4 fL; WBC 5.26 10^3/uL (4.4-10.8)
[2021-09-10 19:59] LABS: ALT 27 U/L (14-59); AST 29 U/L (15-37); Albumin 3.3 g/dL (3.4-5.0); Alkaline Phosphatase 92 U/L (46-116); Anion Gap 6.5 mmol/L (3-11); BUN 7 mg/dL (7-18); Bilirubin, Total 0.1 mg/dL (0.2-1.0); CO2 35.5 mmol/L (21.0-32.0); CREATININE 0.6 mg/dL (0.55-1.02); Calcium 8.8 mg/dL (8.5-10.1); Chloride 99 mmol/L (98-107); Glucose 108 mg/dL (74-106); Potassium 3.8 mmol/L (3.5-5.1); Sodium 141 mmol/L (136-145); Vitamin B12 889 pg/mL (193-986)
[2021-09-14 09:38] LABS: Prealbumin 16 mg/dL (20-40)
== END 2021-09-10 16:24 | disposition home or self-care (01) ==
LOC: LBN 16:23
PROVIDERS: PCP Nurse Practitioner Adult Health; Visit Provider Nurse Practitioner Family
DX: E63.9 Nutritional deficiency, unspecified (principal); E87.6 Hypokalemia; R19.7 Diarrhea, unspecified; R53.81 Other malaise; R53.83 Other fatigue; R63.0 Anorexia
CPT/HCPCS: 80053; 85027; 82607; 84134

== ENCOUNTER 2021-12-01 13:29 | Outpatient (REF) | payer MEDICARE, MEDICAID, SELFPAY ==
[2021-12-01 14:22] LABS: HCT 36.8 % (36.0-46.0); HGB 12.2 g/dL (11.2-15.7); MCH 29.2 pg (27.0-33.0); MCHC 33.2 % (32.0-36.0); MCV 88 fL (80-95); MPV 10.2 fL (8.0-11.0); Platelet Count 235 10^3/uL (130-400); RBC 4.18 10^6/uL (3.93-5.22); RDW 11.9 % (11.7-14.6); RDW-SD 38.3 fL; WBC 5.69 10^3/uL (4.4-10.8)
[2021-12-01 14:40] LABS: ALT 29 U/L (14-59); AST 29 U/L (15-37); Albumin 3.6 g/dL (3.4-5.0); Alkaline Phosphatase 78 U/L (46-116); Anion Gap 4.7 mmol/L (3-11); BUN 5 mg/dL (7-18); Bilirubin, Total 0.3 mg/dL (0.2-1.0); CO2 38.3 mmol/L (21.0-32.0); CREATININE 0.6 mg/dL (0.55-1.02); Calcium 8.9 mg/dL (8.5-10.1); Chloride 99 mmol/L (98-107); Estimated GFR 102.06 (mL/min/1.73m2); Glucose 86 mg/dL (74-106); Magnesium 1.6 mg/dL (1.8-2.4); Potassium 3.6 mmol/L (3.5-5.1); Sodium 142 mmol/L (136-145); Total Protein 7.2 g/dL (6.4-8.2)
== END 2021-12-01 13:30 | disposition home or self-care (01) ==
LOC: LBN 13:29
PROVIDERS: PCP Nurse Practitioner Adult Health; Visit Provider Nurse Practitioner Adult Health
DX: E87.6 Hypokalemia (principal); K62.5 Hemorrhage of anus and rectum; R11.10 Vomiting, unspecified
CPT/HCPCS: 80053; 85027; 83735

== ENCOUNTER 2022-07-02 00:08 | Outpatient (CLI) | payer MEDICARE, MEDICAID, SELFPAY ==
--- NOTE | 2022-07-02 07:42 | DI.MAMMO_ITS ---
Exam(s) MAMMO DIAGNOSTIC BI EXAM: MAMMO DIAGNOSTIC BI CLINICAL HISTORY: bilat breast lumps,n63.10,n63.20,? atypical mass. TECHNIQUE: Unilateral spot mammographic images were obtained with 3D tomosynthesis technique and uti lizing computer aided detection (CAD). COMPARISON: Prior mammograms were reviewed, the most recent being 2017. FINDINGS: There has been no significant change in the appearance and distribution of the fibroglandular tissue which is predominately fatty. There are no new significant masses nor malignant-appearing microcalcification groups. A stable oswald gn-appearing small nodule laterally in the right breast is unchanged and has appearance of benign int ramammary lymph node. No new architectural distortion or skin thickening-traction. IMPRESSION: No radiographic evidence of malignancy BI-RADS Category 1 - Negative Breast Density - Category A - Almost entirely fatty Breast density Category C or D implies that the patient has dense breast tissue. Dense breast tissue can make it harder to find cancer on a mammogram. Dense breast tissue is also associated with an incr eased risk of breast cancer. This information about the result of the mammogram report was provided to the patient to raise their awareness. Use this report when you speak with the patient about their risks for breast cancer, which includes their family history. At that time, you may recommend additional screening tests (Ultrasoun d or MRI) as these tests may add significant information. A negative radiographic report should not delay biopsy if a dominant or clinically suspicious mass is present. Up to ten percent of cancers are not identified on mammography. A negative report may reinforce clinical impression. Adenosis and dense breasts may obscure an underlying neoplasm. False positive reports average 6 to 10%. Patient will receive a letter notifying them of these results.
[2022-07-02] MEDS: Barium Sulfate 2% W/V-Berry Smoothie 450 ML BTL 900 ML PO (08:33)
[2022-07-02 08:57] LABS: Bilirubin Small (Negative); Blood Trace-lysed (Negative); Clarity Clear (Clear); Glucose Negative (Negative); Ketones 15 mg/dL (Negative); Leukocyte Esterase Negative (Negative); Nitrite Negative (Negative); Specific Gravity 1.025 (1.005-1.025); Urobilinogen 0.2 mg/dL (Up to 0.2)
[2022-07-02 09:06] LABS: Bacteria Negative HPF (Negative); C & S Indicated? No; Casts 0-2 Hyaline LPF (Negative); Crystals Negative HPF (Negative); Epithelial Cells Few HPF (Negative); Mucus Heavy (Negative)
[2022-07-02 09:22] LABS: Abs Immature Grans 0.08 10^3/uL (0.0-0.06); Absolute Lymphocyte Count 1.13 10^3/uL (1.2-3.4); Basophils % 0.4; Eosinophils % 0.2; HGB 12.8 g/dL (11.2-15.7); Immature Grans % 0.4; Lymphocytes % 5.8; MCH 29.8 pg (27.0-33.0); MCHC 34.6 % (32.0-36.0); MCV 86 fL (80-95); Monocytes % 9.3; Neutrophils % 83.9; Platelet Count 262 10^3/uL (130-400); RDW-SD 38.1 fL; WBC 19.41 10^3/uL (4.4-10.8)
[2022-07-02 09:23] LABS: Absolute Basophil Count 0.08 10^3/uL (0.0-0.2); Absolute Eosinophil Count 0.04 10^3/uL (0.0-0.7); Absolute Monocyte Count 1.81 10^3/uL (0.1-0.8); Absolute Neutrophil Count 16.28 10^3/uL (1.2-6.7)
[2022-07-02 09:45] LABS: ALT 23 U/L (14-59); AST 22 U/L (15-37); Albumin 3.3 g/dL (3.4-5.0); Alkaline Phosphatase 86 U/L (46-116); Anion Gap 8.4 mmol/L (3-11); BUN 10 mg/dL (7-18); CO2 33.6 mmol/L (21.0-32.0); CREATININE 0.7 mg/dL (0.55-1.02); Calcium 9.3 mg/dL (8.5-10.1); Chloride 93 mmol/L (98-107); Estimated GFR 97.72 (mL/min/1.73m2); Glucose 152 mg/dL (74-106); Magnesium 1.1 mg/dL (1.8-2.4); Sodium 135 mmol/L (136-145); TSH (W/Ref FT4) 1.24 uIU/mL (0.36-3.74); Total Protein 8.1 g/dL (6.4-8.2)
[2022-07-02 09:50] LABS: Diff Comment Agrees w/ Instrument; MPV 9.4 fL (8.0-11.0); RBC Morphology Normal
[2022-07-02 09:51] LABS: Potassium 2.6 mmol/L (3.5-5.1)
[2022-07-02 10:29] LABS: Folate 9.9 ng/mL (8.6-20.0); Vitamin B12 1135 pg/mL (193-986)
[2022-07-02] MEDS: Normal Saline - Diluent 50 ML VIAL IJ (10:49)
[2022-07-02] MEDS: Omnipaque 350 MG/ML 500 ML BTL-Imaging package 100 ML IJ (10:50)
--- NOTE | 2022-07-02 10:52 | DI.CT_ITS ---
Exam(s) CT CHEST/ABD/PEL W EXAM: CT CHEST/ABD/PEL W CLINICAL HISTORY: ? new mass,sob,h/o lung and rectal ca,r06.02,gastroenteritis,k52.0. TECHNIQUE: Imaging Protocol: Axial computed tomography images with coronal and sagittal reformatted images were created and reviewed CONTRAST MATERIAL: Intravenous: Omnipaque 350 Contrast volume:100 ml Oral: Yes. Oral contrast also was administered for bowel opacification. COMPARISON: CT CT CHEST PE ABD PELVIS W from 12/01/2020 FINDINGS: CHEST: LUNGS: Again noted is decreased left hemithoracic volume from prior left hemithoracic surgery. Left hilar-infrahilar infiltrate appears unchanged from 12/01/2020. No new left lung findings. No pleura l effusion. In the opposite-right lung there is now significant increased size infiltrate in the anterior segment of the right upper lobe which measures 4 cm AP by 1.8 cm wide. No associated pleural effusion. No other focal right lung findings. No findings in the right lower lobe.. No new focal findings in tra jane and mainstem bronchi. MEDIASTINUM: There is no new hilar nor mediastinal adenopathy. Visualized thyroid unremarkable.Moder ate size hiatal hernia is again noted. Unchanged in size. CARDIAC: Heart size is normal. There is no pericardial effusion.Caliber of the thoracic aorta is wit hin normal limits. OSSEOUS: 2 small benign-appearing sclerotic densities in thoracic vertebrae are unchanged from r 2020 and probably benign bone islands. Similar finding in the left side of the L1 vertebral body i s also unchanged and consistent with benign bone island. There are no new lytic osseous lesions.. ABDOMEN: There is no ascites. LIVER: Liver is again noted be hypodense implying steatosis. No discrete focal hepatic lesions ident ified. GALLBLADDER/BILIARY: Gallbladder is again noted be surgically absent. CBD diameter is prominent, pro bably related to post cholecystectomy status. PANCREAS: No evidence of pancreatic mass nor dilatation of the pancreatic duct. SPLEEN: Spleen is not enlarged. There are no intrasplenic lesions. Splenic and portal veins are glod nt. ADRENALS: There are no significant adrenal masses. KIDNEYS: No calculi nor hydronephrosis. No solid renal masses. Cysts in the left kidney noted, rangin g up to 2.2 cm (lower pole). No solid renal masses. No calculi. No hydronephrosis. ABDOMINAL AORTA: Abdominal aorta is not enlarged. LYMPH NODES: There is no retroperitoneal nor paraaortic adenopathy. ABDOMINAL WALL: No evidence of significant anterior abdominal wall nor inguinal hernia. GI: There is no evidence of bowel obstruction. PELVIS: LYMPH NODES: There is no intrapelvic nor inguinal adenopathy. GI: No evidence of appendicitis.Appearance of the sigmoid is unchanged, having colitis-type appearanc e. URINARY BLADDER: No calculi nor masses evident REPRODUCTIVE: Uterus surgically absent. No abnormal tissue in this region. No free fluid in the pel vis. No intrapelvic adenopathy. OSSEOUS: No significant osseous lesions. Advanced anterolisthesis L5 upon S1 due to L5 pars defects. Also advanced disc space narrowing at th is level again noted. IMPRESSION: 1. Increased infiltrate in the right upper lobe when compared to the prior CT scan of November 2020. Appearance of the left lung is stable. There are no pleural effusions. No new intrathoracic adenopa thy evident.. 2. Unchanged benign-appearing small sclerotic bone densities which are probably benign bone islands. No new bone lesions identified. 3. Colitis type appearance of the sigmoid colon, although this may be exaggerated by lack of intralum inal contrast at this level. 4. Previous cholecystectomy and hysterectomy. No bowel obstruction. No abscess. No free fluid. Other findings as above. RADIATION DOSE DELIVERED: 1,557.55mGy.cm Total DLP DATA REPOSITORY: All CT scans at this facility are submitted to the National Radiology Data Registry (NRDR) Dose Index Registry (DIR) with the [employer] ([employer]). RADIATION OPTIMIZATION: All CT scans at this facility use at least one of these dose optimization te chniques: automated exposure control; mA and/or kV adjustment per patient size (includes targeted exa ms where dose is matched to clinical indication); or iterative reconstruction.
== END 2022-07-02 00:28 ==
LOC: DI 00:09
PROVIDERS: PCP Nurse Practitioner Adult Health; Visit Provider Nurse Practitioner Adult Health
DX: N32.89 Other specified disorders of bladder (principal); E83.42 Hypomagnesemia; E87.6 Hypokalemia; J44.9 Chronic obstructive pulmonary disease, unspecified; R53.83 Other fatigue; Z85.118 Personal history of other malignant neoplasm of bronchus and lung; K52.0 Gastroenteritis and colitis due to radiation; Z85.048 Personal history of other malignant neoplasm of rectum, rectosigmoid junction, and anus; N63.10 Unspecified lump in the right breast, unspecified quadrant; N63.20 Unspecified lump in the left breast, unspecified quadrant
CPT/HCPCS: 36415; 74177; 77062; 77066; 80053; 71260; 81003; 81015; 82607; 82746; 83735; 84443; 85025; G0279

== ENCOUNTER 2022-07-13 18:16 | Outpatient (REF) | payer MEDICARE, MEDICAID, SELFPAY ==
[2022-07-13 17:19] LABS: Anion Gap 5.5 mmol/L (3-11); BUN 6 mg/dL (7-18); CO2 36.5 mmol/L (21.0-32.0); CREATININE 0.5 mg/dL (0.55-1.02); Calcium 8.1 mg/dL (8.5-10.1); Chloride 97 mmol/L (98-107); Estimated GFR 105.98 (mL/min/1.73m2); Glucose 88 mg/dL (74-106); Potassium 3.4 mmol/L (3.5-5.1); Sodium 139 mmol/L (136-145)
== END 2022-07-13 18:17 | disposition home or self-care (01) ==
LOC: LBN 18:16
PROVIDERS: PCP Nurse Practitioner Adult Health; Visit Provider Nurse Practitioner Adult Health
DX: E87.6 Hypokalemia (principal); R79.89 Other specified abnormal findings of blood chemistry
CPT/HCPCS: 80048

== ENCOUNTER 2023-05-03 18:33 | Outpatient (REF) | payer MEDICARE, MEDICAID, SELFPAY ==
[2023-05-03 15:19] LABS: HCT 35.5 % (36.0-46.0); HGB 12.1 g/dL (11.2-15.7); MCH 28.7 pg (27.0-33.0); MCHC 34.1 % (32.0-36.0); MCV 84 fL (80-95); MPV 10.1 fL (8.0-11.0); Platelet Count 265 10^3/uL (130-400); RBC 4.21 10^6/uL (3.93-5.22); RDW 11.9 % (11.7-14.6); RDW-SD 36.2 fL; WBC 8.15 10^3/uL (4.4-10.8)
[2023-05-03 15:37] LABS: ALT 20 U/L (14-59); AST 24 U/L (15-37); Albumin 3.7 g/dL (3.4-5.0); Alkaline Phosphatase 102 U/L (46-116); Anion Gap 8.2 mmol/L (3-11); BUN 9 mg/dL (7-18); Bilirubin, Total 0.3 mg/dL (0.2-1.0); CO2 37.8 mmol/L (21.0-32.0); CREATININE 0.5 mg/dL (0.55-1.02); Calcium 9.7 mg/dL (8.5-10.1); Chloride 96 mmol/L (98-107); Estimated GFR 105.32 (mL/min/1.73m2); Glucose 69 mg/dL (74-106); Magnesium 1.3 mg/dL (1.8-2.4); Sodium 142 mmol/L (136-145); Total Protein 7.7 g/dL (6.4-8.2)
== END 2023-05-03 18:34 | disposition home or self-care (01) ==
LOC: NCHCN 18:33
PROVIDERS: PCP Nurse Practitioner Adult Health; Visit Provider Nurse Practitioner Adult Health
DX: R11.0 Nausea (principal); E83.42 Hypomagnesemia; E87.6 Hypokalemia; J44.9 Chronic obstructive pulmonary disease, unspecified; F32.89 Other specified depressive episodes
CPT/HCPCS: 80053; 85027; 83735

== ENCOUNTER 2023-10-27 20:33 | Outpatient (REF) | payer MEDICARE, SELFPAY ==
[2023-10-27 13:25] LABS: HCT 39.1 % (36.0-46.0); HGB 12.8 g/dL (11.2-15.7); MCH 28.7 pg (27.0-33.0); MCHC 32.7 % (32.0-36.0); MCV 88 fL (80-95); MPV 10.7 fL (8.0-11.0); Platelet Count 211 10^3/uL (130-400); RBC 4.46 10^6/uL (3.93-5.22); RDW 12.1 % (11.7-14.6); WBC 10.26 10^3/uL (4.4-10.8)
[2023-10-27 14:01] LABS: ALT 21 U/L (14-59); AST 15 U/L (15-37); Albumin 3.3 g/dL (3.4-5.0); Alkaline Phosphatase 94 U/L (46-116); Anion Gap 6.2 mmol/L (3-11); BUN 8 mg/dL (7-18); Bilirubin, Total 0.51 mg/dL (0.2-1.0); CO2 40.8 mmol/L (21.0-32.0); CREATININE 0.7 mg/dL (0.55-1.02); Calcium 8.8 mg/dL (8.5-10.1); Chloride 94 mmol/L (98-107); Estimated GFR 97.12 (mL/min/1.73m2); Folate 7.9 ng/mL (8.6-20.0); Glucose 107 mg/dL (74-106); Magnesium 1.2 mg/dL (1.8-2.4); Sodium 141 mmol/L (136-145); TSH (W/Ref FT4) 1.93 uIU/mL (0.36-3.74); Total Protein 6.9 g/dL (6.4-8.2); Vitamin B12 1004 pg/mL (193-986)
[2023-10-27 14:11] LABS: Potassium 2.7 mmol/L (3.5-5.1)
== END 2023-10-27 20:34 | disposition home or self-care (01) ==
LOC: LBN 20:33
PROVIDERS: PCP Nurse Practitioner Adult Health; Visit Provider Nurse Practitioner Adult Health
DX: R53.83 Other fatigue (principal); M48.07 Spinal stenosis, lumbosacral region; G89.29 Other chronic pain; E87.6 Hypokalemia; E83.42 Hypomagnesemia
CPT/HCPCS: 80053; 85027; 82607; 82746; 83735; 84443

== ENCOUNTER 2024-07-20 00:49 | Outpatient (CLI) | payer MEDICARE, SELFPAY ==
--- NOTE | 2024-07-20 08:15 | DI.US_ITS ---
Exam(s) US BREAST RT LIMITED MG MAMMO DIAGNOSTIC BI EXAM: MG MAMMO DIAGNOSTIC BI CLINICAL HISTORY: ? concerning mass in R breast,RT BREAST PAIN,H/O LUNG CA,FAMILY H/O. COMPARISON: 2016 through 2022 TECHNIQUE: Craniocaudal and mediolateral oblique Full Field Digital Mammography views of both breast s with Computer Aided Diagnosis followed by Tomosynthesis and right breast ultrasound. FINDINGS: Mammography/Tomosynthesis: Masses: None seen. Architectural Distortion: None seen. Microcalcifications: No suspicious pleomorphic-type are seen. Skin Thickening/Nipple Retraction: None. Port partially included in the field of view over the right pectoral muscle. Right breast US: Echotexture: Normal appearance of the glandular tissue. Shadowing: No suspicious foci. Cyst: None. Solid lesions: None seen. Ductal dilation: None. IMPRESSION: 1. No evidence of malignancy is noted. 2. Unless there is more urgent need, follow-up screening mammography is recommended, as per [employer] [employer] guidelines. BI-RADS Category 1 - Negative Breast Density - Category A - The breast are almost entirely fatty. Breast density Category C or D implies that the patient has dense breast tissue. Dense breast tissue can make it harder to find cancer on a mammogram. Dense breast tissue is also associated with an incr eased risk of breast cancer. This information about the result of the mammogram report was provided to the patient to raise their awareness. Use this report when you speak with the patient about their risks for breast cancer, which includes their family history. At that time, you may recommend additional screening tests (Ultrasoun d or MRI) as these tests may add significant information. A negative radiographic report should not delay biopsy if a dominant or clinically suspicious mass is present. Up to ten percent of cancers are not identified on mammography. A negative report may reinforce clinical impression. Adenosis and dense breasts may obscure an underlying neoplasm. False positive reports average 6 to 10%. Patient will receive a letter notifying them of these results.
== END 2024-07-20 01:09 ==
LOC: DI 00:50
PROVIDERS: PCP Nurse Practitioner Adult Health; Visit Provider Nurse Practitioner Adult Health
DX: Z85.118 Personal history of other malignant neoplasm of bronchus and lung; Z80.3 Family history of malignant neoplasm of breast; R92.8 Other abnormal and inconclusive findings on diagnostic imaging of breast; Z12.31 Encounter for screening mammogram for malignant neoplasm of breast
CPT/HCPCS: 76642; 77062; 77066; G0279

== ENCOUNTER 2024-12-05 15:38 | Outpatient (REF) | payer MEDICARE, SELFPAY ==
[2024-12-05 16:58] LABS: ALT 40 U/L (14-59); AST 34 U/L (15-37); Albumin 4.1 g/dL (3.4-5.0); Alkaline Phosphatase 94 U/L (46-116); Anion Gap 7.9 mmol/L (3-11); BUN 11 mg/dL (7-18); Bilirubin, Total 0.4 mg/dL (0.2-1.0); CO2 36.1 mmol/L (21.0-32.0); Calcium 9.1 mg/dL (8.5-10.1); Chloride 98 mmol/L (98-107); Estimated GFR 96.52 (mL/min/1.73m2); Glucose 115 mg/dL (74-106); Magnesium 1.8 mg/dL (1.8-2.4); Potassium 3.2 mmol/L (3.5-5.1); Sodium 142 mmol/L (136-145); TSH (W/Ref FT4) 4.09 uIU/mL (0.36-3.74); Total Protein 8.2 g/dL (6.4-8.2)
[2024-12-05 17:55] LABS: Vitamin B12 502 pg/mL (193-986)
[2024-12-05 18:03] LABS: Folate > 20.0 ng/mL (8.6-20.0)
== END 2024-12-05 15:39 | disposition home or self-care (01) ==
LOC: LBN 15:38
PROVIDERS: PCP Nurse Practitioner Adult Health; Visit Provider Nurse Practitioner Adult Health
DX: R19.7 Diarrhea, unspecified (principal); E83.42 Hypomagnesemia; E87.6 Hypokalemia; K52.0 Gastroenteritis and colitis due to radiation; R12 Heartburn; K62.7 Radiation proctitis
CPT/HCPCS: 80053; 82607; 82746; 83735; 84439; 84443

== ENCOUNTER 2024-12-06 17:52 | Outpatient (REF) | payer MEDICARE, SELFPAY ==
[2024-12-06 18:11] LABS: Abs Immature Grans 0.07 10^3/uL (0.0-0.06); HCT 41.0 % (36.0-46.0); HGB 13.2 g/dL (11.2-15.7); Immature Grans % 0.6 %; MCH 28.0 pg (27.0-33.0); MCHC 32.2 % (32.0-36.0); MCV 87 fL (80-95); MPV 10.2 fL (8.0-11.0); Platelet Count 345 10^3/uL (130-400); RBC 4.71 10^6/uL (3.93-5.22); RDW 12.7 % (11.7-14.6); RDW-SD 40.6 fL; WBC 12.13 10^3/uL (4.4-10.8)
== END 2024-12-06 17:53 | disposition home or self-care (01) ==
LOC: LBN 17:52
PROVIDERS: PCP Nurse Practitioner Adult Health; Visit Provider Nurse Practitioner Adult Health
DX: R19.7 Diarrhea, unspecified (principal); E83.42 Hypomagnesemia; E87.6 Hypokalemia; K52.0 Gastroenteritis and colitis due to radiation; R12 Heartburn; K62.7 Radiation proctitis
CPT/HCPCS: 85025